=== PATIENT | female | born 2000 | race Caucasian/White ===

== ENCOUNTER 2024-01-07 09:56 | Outpatient (OUT) | payer OTHER, SELFPAY | END 2024-01-07 09:57 | disposition home or self-care (01) | LOC: PST 10:01 | PROVIDERS: PCP Family Medicine; Visit Provider Obstetrics & Gynecology | DX: Z01.818 Encounter for other preprocedural examination (principal); Z30.2 Encounter for sterilization ==

== ENCOUNTER 2024-01-17 08:09 | Day surgery (SDC) | payer OTHER, SELFPAY ==
[2024-01-07 10:41] VITALS: BP 129/82; PULSE 87; TEMP 36.5; O2SAT 98; BMI 36.6
[2024-01-17] VITALS (15 sets, daily range): BP systolic 137–162; BP diastolic 64–96; PULSE 79–94; TEMP 35.8–36.7; O2SAT 94–98; BMI 36.8
[2024-01-17 08:19] LABS: Hematocrit 39.9 % (36.0-48.0); Hemoglobin 13.7 g/dL (12.0-16.0); Immature Granulocytes Abs Auto 0.02 10^3/uL (0.00-0.03); Immature Granulocytes Pct Auto 0.2 % (0.0-0.5); Lymphocytes Absolute Auto 2.3 10^3/uL (1.2-3.8); Lymphocytes Percent Auto 28.5 % (20.5-60.0); Mean Corpuscular HGB Conc 34.3 g/dL (29.9-35.2); Mean Corpuscular Hemoglobin 30.9 pg (26.7-34.0); Mean Corpuscular Volume 90.1 fL (81.0-99.0); Mean Platelet Volume 10.8 fL (9.5-13.5); Monocytes Absolute Auto 0.5 10^3/uL (0.3-0.8); Monocytes Percent Auto 6.3 % (1.7-12.0); Neutrophils Absolute Auto 5.2 10^3/uL (1.4-6.5); Platelet Count 240 10^3/uL (150-450); Red Blood Count 4.43 10^6/uL (4.20-5.40); White Blood Count 8.1 10^3/uL (4.0-11.0)
--- OUTSIDE RECORDS SUMMARY | 2024-01-17 08:20 | XMS_ITS | CCD ---
Author Organization [facility] Care Team Providers Care Front Of House Manager Name Role Phone Unavailable Primary Care Provider Sudheer Teresa MD, Alvino Grover Primary Care Unavailable Malick WATERS, Alvino Grover Attending Unavailable HOUSE, JEANNETTE Menjivar Primary Care Unavailable Malick WATERS, Alvino Grover Attending Unavailable Dao, Gary Attending Unavailable HOUSE, JEANNETTE P Primary Care Unavailable HOUSE, JEANNETTE P Referring Unavailable Dao, Gary Attending Unavailable HOUSE, JEANNETTE P Primary Care Unavailable Dao, Gary Admitting Unavailable Dc, Gary Attending Unavailable HOUSE, JEANNETTE P Primary Care Unavailable HOUSE, JEANNETTE P Admitting Unavailable HOUSE, JEANNETTE P Attending Unavailable HOUSE, JEANNETTE P Primary Care Unavailable HOUSE, JEANNETTE P Admitting Unavailable HOUSE, JEANNETTE P Attending Unavailable HOUSE, JEANNETTE P Primary Care Unavailable Malick WATERS, Alvino Grover Attending Unavailable Malick WATERS, Alvino Grover Primary Care Unavailable HOUSE, JEANNETTE Otto Primary Care Unavailable DORIE GOMEZ Attending Unavailable ARACELY KILGORE Attending Unavailable HUI-NOSSEK, HOLLY M Attending Unavailab le HUI-NOSSEK, HOLLY M Attending Unavailab le [facility], HOLLY M Attending Unavailab le HUI-NOSSEK, HOLLY M Attending Unavailab le HUI-NOSSEK, HOLLY M Attending Unavailab le [facility]UI-NOSSEK, HOLLY M Attending Unavailab le [facility], HOLLY M Attending Unavailab le BRETTOANH ABRAMS Attending Unavailable [facility]-NOSSEK, HOLLY M Attending Unavailab le BRETTOANH Attending Unavailable H[facility]-NOSSEK, HOLLY M Attending Unavailab le Allergies Allergy Classification Reported Allergen(s) Allergy Type Date of Onset Reaction(s) Facility (4 sources) Amoxicillin; Translations: [AMOXICILLIN] Drug Allergy 9 [facility] (4 sources) ARIPiprazole; Translations: [ARIPIPRAZOLE] Drug Allergy 3 Other [facility] (3 sources) Sertraline Drug Allergy 3 Other [facility] (1 source) Pollen; Translations: [Pollen] Propensity to adverse reactions (disorder) Repository (1 source) Bee pollen; Translations: [BEE POLLEN] Propensity to adverse reactions to drug (disorder) 4 [facility] Repository Medications Current Medications Medication Drug Class(es) Dates Sig (Normalized) Sig (Original) LORazepam 0.5 mg oral tablet (3 sources) Benzodiazepine LORazepam (Ativa n) 0.5 MG tablet Take 0.5 mg by mouth as needed at bedtime for anxiety 0 Active lumateperone 42 mg oral capsule (5 sources) Start: 05-15-19 End: 07-06-19 take 1 capsule by mouth in the morning Lumateperone Tosylate (Caplyta) 42 MG capsule Indications: Bipolar I disorder, moderate, current or most recent episode depressed, with psychotic features, with mixed features (CMS/HCC) Take 42 mg by mouth in the morning. 30 capsule 1 06/06/2023 07/06/2023 Active 1 ml medroxyPROGESTERone acetate 150 mg/ml prefilled syringe (3 sources) Progestin Start: 05-09-19 medroxyPROGESTERone (Depo-Provera) 150 MG/ML suspension prefilled syringe injection syringe Indications: Unwanted fertility Inject 1 mL (150 mg) into the shoulder, thigh, or buttocks every 3 (three) months 1 mL 3 05/09/2023 Active sertraline 100 mg oral tablet (3 sources) Serotonin Reuptake Inhibitor Start: 04-17-20 End: 04-16-20 take 1 tablet by mouth in the morning sertraline (Zoloft) 100 MG tablet Indications: Anxiety Take 1 tablet (100 mg) by mouth in the morning. 30 tablet 2 04/17/2023 04/16/2024 Active 24 hr divalproex sodium 500 mg extended release oral tablet (2 sources) Mood Stabilizer, Anti-epileptic Agent Start: 06-06-19 End: 07-06-19 take 1 tablet by mouth every twenty-four hours in the morning divalproex (Depakote ER) 500 MG 24 hr tablet Indications: Bipolar I disorder, moderate, current or most recent episode depressed, with psychotic features, with mixed features (CMS/HCC) Take 1 tablet (500 mg) by mouth in the morning. Do not crush, chew, or split.. 30 tablet 2 06/06/2023 07/06/2023 Active Completed/Discontinued Medications Medication Drug Class(es) Dates Sig (Normalized) Sig (Original) lamoTRIgine 100 mg oral tablet (3 sources) Mood Stabilizer, Anti-epileptic Agent Start: 04-01-2023 End: 06-06-2023 take 1 tablet by mouth in the morning lamoTRIgine (LaMICtal) 100 MG tablet Indications: Bipolar disorder with moderate depression (CMS/HCC) Take 1 tablet (100 mg) by mouth in the morning. 30 tablet 1 04/01/2023 06/06/2023 Discontinued Problems Active Problems Problem Classification Problem Date Documented Date Episodic/Chronic Anxiety disorders (6 sources) Anxiety; Translations: [Anxiety disorder, unspecified] Onset: 02-18-2023 02-18-2023 Chronic Attention-deficit, conduct, and disruptive behavior disorders (3 sources) Attention deficit hyperactivity disorder; Translations: [Attention-deficit hyperactivity disorder, unspecified type] Onset: 02-18-2023 02-18-2023 Chronic Mood disorders (5 sources) Bipolar disorder; Translations: [Bipolar disorder, unspecified] Onset: 02-18-2023 02-18-2023 Chronic Other female genital disorders (1 source) Other specified noninflammatory disorders of vagina; Translations: [Other specified noninflammatory disorders of vagina] Onset: 11-09-2023 Episodic Unclassified (1 source) Painful Urination Onset: 11-09-2023 Unclassified (1 source) Vaginal Burning, Pain with Urination Onset: 11-09-2023 Past or Other Problems Problem Classification Problem Date Documented Da te Episodic/Chronic Mood disorders (3 sources) Mood disorders Onset: 04-17-2023 04-17-2023 Results Test Name Value Interpretation Reference Range Facility HCG ( test) Ql (U)o n 11-09-2023 Beta HCG ( test) Ql (U) Negative Normal NEG [facility] Comment on above: Performed By: #### 2 106-3 #### [facility] ([id number]) [address] [place] [address] [place] [address] URN MACROSCOPIC NURon 2023 BILIRUBIN EFRAIN Negative Normal NEG [facility] Comment on above: Performed By: #### N UM #### [facility] ([id number]) [address] [place] [address] [place] [address] BLOOD/HGB EFRAIN Small Abnormal NEG [facility] Comment on above: Performed By: #### N UM #### [facility] ([id number]) [address] [place] [address] [place] [address] GLUCOSE EFRAIN Negative Normal NEG [facility] Comment on above: Performed By: #### N UM #### [facility] ([id number]) [address] [place] [address] [place] [address] KETONES EFRAIN Negative Normal NEG [facility] Comment on above: Performed By: #### N UM #### [facility] ([id number]) [address] [place] [address] [place] [address] LEUKOCYTE ESTERASE EFRAIN Negative Normal NEG [facility] Comment on above: Performed By: #### N UM #### [facility] ([id number]) [address] [place] [address] [place] [address] NITRITE EFRAIN Negative Normal NEG [facility] Comment on above: Performed By: #### N UM #### [facility] ([id number]) [address] [place] [address] [place] [address] PH EFRAIN 6.0 Normal 5.0-8.5 [facility] Comment on above: Performed By: #### N UM #### [facility] ([id number]) [address] [place] [address] [place] [address] PROTEIN EFRAIN Negative Normal NEG [facility] Comment on above: Performed By: #### N UM #### [facility] ([id number]) [address] [place] [address] [place] [address] SPECIFIC GRAVITY EFRAIN 1.010 Normal 1.003-1.035 Pro [facility] Comment on above: Performed By: #### N UM #### [facility] ([id number]) [address] [facility], [place] [address] UROBILINOGEN EFRAIN 0.2 eu/dL Normal <1.1 [facility] Comment on above: Performed By: #### N UM #### [facility] ([id number]) [address] [place] [address] VAGINITIS PANEL PCRon 2023 VAGINITIS PANEL PCR BACT. VAGINOSIS DNA Not detected (qualifier value) Qualitative results are reported based on detection and quantitation of targeted organism markers which include: Lactobacillus spp. (L. crispatus and L. jensenii), Gardnerella vaginalis, Atopobium vaginae, Bacterial Vaginosis Associated Bacteria-2 (BVAB-2) and Megasphaera-1 JULIA SPECIES DNA Not detected (qualifier value) Julia species not detected include: C. albicans, C. tropicalis, C. parapsilosis or C. dubliniensis JULIA KRUSEI DNA Not detected (qualifier value) No Julia krusei detected JULIA GLABRATA DNA Not detected (qualifier value) No Julia glabrata detected TRICHOMONAS VAG DNA Not detected (qualifier value) No Trichomonas vaginalis detected NOTE BD MAX Vaginal Panel has not been evaluated for patients under 18 years old. Results for these patients should be reviewed and assessed in accordance with clinical presentation to determine patient diagnosis. Normal [facility] Comment on above: Performed By: #### V PPCR #### [facility] ([id number]) [address] [place] [address], [address] [place] [address] Provider Orderson 10-18-2023 Provider Orders [id number] [facility] Coding Summaryon 10-01-2023 Coding Summary HTMLBase 64 LfgsclhyYXz6rNu+PGhl YWQ+ZZ4OCRAuA96tzOPe kP1nI7XQEApDCeofGVWM FDcQJmLoqdKoMB6bzROn ZXJu IC8+ZP8aYGLhRjnukHPt t6C9fBB8I42erv8sDQeu bUI1YVWyJgFnltpnb1dz lTl3CWubMzaiKePp UTSqwV10WXF4xD51Wz08 rTDqqELua0qzpIr9RhRj PZKpYXC3jPdeRNvmh0Fh SSLjS52amBZrw0N4 IGNvbGxhcHNlOyBlbXB0 gU5gPEkgjogrc9yfuccg Eja4nx45nOBog7I1pWF6 R3LktgD4DBFxrTCd NsmnjZTNnG6efkmzc2pb jmwaNaAsQVBkTKd9UIb8 NPKqgBkrQfGgKN15SSW5 OSBgveXlU9LjLLLo iMfkAeJ7q8U2Kv8UY4SE RsiqY0DCJRHGWDzwlXL+ YR31nx59Z5YzHsvfWlr0 VQJlWKS9uRE6hM1c WNIsQPuid8Y5aFV0O3Wk duSfqf8ki6doDXSlWCam V13tdAMfg8W1CQTxzEQ9 BCEnwItlSvIkqM95 Oyc+GZDkuFcyb2DdGwdu s7jle6tjrCj9BjshZKCa skKbvLacWJM4h9TsKv5g IWFytPR7uAH6dK0d UfTaFpV1CSytE140FtHy wVItUduaN93fB8DtlJA+ GGLtChi8OSMkoWleQH8j S9BzWYLhthaaeGTd jCioLC9gDGXebxotGCYp cR3yHANnO6f0IlAdLcZ9 UMjyD3TbXVYutetvBz38 zX3fDwPsCqD4FCxs M1KluiD3UBDwoASlBGzj STJ6F23ip0P6QELqZIEc FAK4wLG9aA7izCohzcqu bGVmdDsgdmVydGlj CHtdFPzxY073GYYceXsv PkNvZGluZyBEYXRlOiAg MDYvMDQvMjAyNDwvdGQ+ WVRjFYO8gDlqLVXa vIEjXFneKx9hhQspfKck SX9aSLAgjcwvPOWysM8y WVRbdLZerXfpIQ6jWBRo noynt465TqHhBYC2 OQBewKTrT1IwlQ4fPdXl FOQiXQNmF7RirNFcKFpw C868SBmeEaZ7NSCsydUs T6EhLFEjdNkxCvO0 k4W9Ae9Zu8HofesaA6Mg eEXoEoIoKzobXKk3Y5Le PjwvdHI+VI70BODsVD10 HFh9XNN9lJaiGLej ZQScF0BhlZ8vFsKcJZIw ZGRkOyc+PHRhYmxlIHdp ZHRoPScxMDAlJyBzdHls YP2iAx4zUEOuYWCu qRqjrVOeWqQzc6dfHXCd WTajRM2hlVcsH6HdoEI0 CGDtj6a3Dq50A16nG0Kz dXA+UBQywXA1eBI3 hK1sKuJuDtS9TEjvF462 BoKcmRLxAejfe1vgp1wz zBl2KjC0BMEucnRsjMfs VCS0s5LzNo00X18n IHdpZHRoPSIxNSUiIHZh fUscps1bjD3rZx1+PGNv jGG5aNP1tR1pIbLkElX4 HYccP329HuOskWOm Fgxgg8avc3bmyFq3RqFl PCLxrgSwqArtINL8v8Ir Fy46H5HnuWres1XhFno2 gt30fDSjv6Y3eNB9 U7QcRJButexwvGLakIbk MT1hCGEzvkfwHZCtzE1o VQXsA9k8JhMtOcO3ASkr M0GhttU0CVZwlRCq BMKjkHHZgT6hdofww7re slnlKuIcPFFyMOp9BEd6 DQMchBcsPaLmOTX0BkZ1 UKY9mEKptE1omTwg ufylsM0rKqr+WUQ8zDOv mOVDET0kUvjecZM+PHRk EXR9jAdiAQhoRZHrgI0n LRThD0c6SvXzHkU9 CSpnR0HbkeX3XNRilOGz CXFtgCUXrW2rpejuj6cr hjdfWoFvPZUwECl3PDg8 LWFsaWduOiBsZWZ0 RdA8URR7fTHcqC9gtObe qmkhyS5vMuu+QmlydGgg QDO3LTb7X8MrPho7KAMz rYkiXV1eoFIkVTla Go7sjAwuwSkkDK8pFAUd zehdv060OfGcz0jsONSs lTZpDEuxQFK2M49xp0Y5 KLYeVKIgCHQ7wDQ2 sS3snTvfwntihQYifTfn fxPjdLisXYxsTBjzT169 OFXnnRjpYqZrFZe2R7Qq Mvq3HCVgyDjnUX8l dLGpBDutWn7npErmwCbq BU1tTJRimtiux584MpVq v9giSPQmtEBzDCzpJRD8 Q78vj1Z0UMJlIBUh SQT7yUW0xQ6gcUkhcduo bGVmdDsgdmVydGljYWwt PJweB497PVHsyJqyFfTs zWg8X9HmEiv5EIBi oGrsRM5epGHmTShmUs6s hDddvXocYJ9tXSJuumdj c650KtJqa4xbOOHeuXXq COlnFTP1J78eu9E2 OKKfQKObIHX7bMT3mH1f bGlnbjogbGVmdDsgdmVy qDxpGKtyKSthI303AHWn cDsnPlBhdGllbnQg FKlrBSy2K1PiZrtqjDT+ VJ34GXRuSJ53pSHgnODs q4pswRb9ZhAkXACiGIZ0 iKjpKRkxd8WzNQLy K43ccCXdm2P2IWKpmLnj yCVyHuGnsVC0rW0pSWwz qfyov4ntssapKsfmw1cf ih23uV17G59qPFqm ZHRoPSIzMCUiIHZhbGln ze2vaK8gJh0+PGNvbCB3 xPQ9vZ8gSZGxGwT6IVqg W295PlZuqTQcRvmo r0duj5redUb0PkW2PNDa nfTkaVpoXTC7l2AiFf03 C85jNDyjRDNvTRDnVMPn CIVnbBnwqg1aeU0s Ii8+LSYzyUP8lKA6bP4n MaBtFdX1ODehY307GrPg pXIdKgfjY85rL5ZimLX+ BHGxAfz1EJMgcFlt KN0srAPdMSwjHi2aSKA1 CaYnIwAzXCxgO4FeUOVg enelhccreIA3OQEiVUJi sV21Ma1jhRnrZDSy wPBWcG2bkskom1cwylby RcYsWSIvVKo4ZHx8KBPj nGxhJlJdIDK7VmN2KGQ0 hSChiS2dpGktnnya cJ4mA4UsRTLtnztiBa07 lJ6bYdNuKmG5FKroYpu+ R7QIDBpXTM2GUHAhHW7Y VAQJOMTPURM8E4Li Eng7GGWwnOajZI6tgNDi NTogMi3ulDcsoBeuNF4m RYPckkqaCJNydL1pPWQa vLAytKqrVK0hDZAc churt567CtEnVUW9QNRf bINfI8PxbD6iDeBiTJQp ZCBfW8ZheIGlXCccG777 YRegAfL1KKXyxiDk C1UdTZHgzWbjAiO4c0M1 Az3gPe0bWC2yXXLwWP52 RZ51xXWhn0J8cIY2I0Ay ZGRpbmctcmlnaHQ6 XBCuBRHroF86uEFmFXar Ag7kc3Q3u385TDMeFYCe zA81Ym5ueEraHWIfiQST lD5tdjwbb5fstmqb ScPeBPRkVIp6ETh8MCQe yGjsZeJxION4CmK1RUB7 nEVtiM0ziXvbieargJ5h Oyc+MjMgWWVhcnM8 B8WlMzi0GPItaOdoBD7w zSRyQCxtJh3fhZqquXim YF2oNDZyfyqdEPRujO4h SFHqrCOryGihSB4x UFPbiqyuf828XpAgZLI5 AMRqxOYaN1YkkC4eRsWf OSQnJWGkZ1RscQUjEShm D959MBfsYfT5PULb chMiA3SqJNPqaKcyRbT8 l4V4Zf5SMY5KQDB9E1Rt Czi7YMTpgXlbGE6coZEg RZlfFs0aoTurgMet IY1rHKXcesjqTXOkfD2z UBAbvPBgqNplST7cJFEj npgoj303PwFvNWX8LZSi hQDmQ1SsnD9wOjAo QHDyXPZzY7LnaWTwLKjs V774NScpIhV4DPGdygBo G8FgMJSgoTjsToC2b3L1 In8YMGzdZ4MaT7Uw eTwvdGQ+AK89tx05X1Hx SwynBvz0CPXyKTY5iAN3 cL2eXQClMFzts0S2yVH2 T3JlbwMasq1at7ds OHNzSNskZ88wfXTsn9O1 ONIdrEO7FJAowIypCcLy aR80Sbs+XSGdtMaet5Cr Wrvzc4ywl8bixGo1 IjMwJSIgdmFsaWduPSJ0 s9ZiGu81R56yBYmfFPUc KPFyJFMkPAKkdRvidb5j mX9aMf7+PGNvbCB3 uSG7dV9wRzQcVhW0PFoy X001HjXhvOImXivdl1xp c3emkEd1ZdPkBGYesmKd vZwzQKQ4v9QpMi84 X5VgxTdhv4EbKbm4tk24 tHTgi6Y1sDR9I4OsOZCa fqpgrEMonTkiFU3aZEMr qunpWIWjyP1qLEOl V6g0AhQlNbO9FZuiH5Lv bcT1KLNhsMKaEWJppLZF rR1ivhnau1hkrblbYnKu FUZwFXc9NGk7QIHo mZotMwUxFXN0QaZ8SKC6 rODgjS9ceSijkrzirO4x Oyc+LDt2r8vuyMYiZQ2l eEV4WL10JZ36tXTi l6U4tEH9R5BqRXQvwhbu noatgZX8JDBtWHJvbK30 Kl6veZsqXk1eNKRsRMZ8 VFMtcFGfT4GtzB0b FiFdZPYaANZyM9PrfRPs AEylN354EQmxBrI5OBHi moKuS8LkBVTutScjJaI9 w8N3Si9GQC63GR40 HS70xARos7X6nWD9V4Wz CBMgbhartqhkrDG1UFVx BSUypH93Sj2guMozKm0x XDTjWCL5RNZmfFZv C4HfwD4bMpYzYUPdMJLo B9PyrFZxTBrhJ972DDzg ZoL3KSVzjcXrD9PwSPQt sLgrOdH9l0K1Ua9N Ug26BD10CN69hOSdf4X6 jOA0J7LkHHNadketblxj lTE1ZZSiNLGemD82St0k kWoeFb0iSIIzLON4 DTEprTPrT9TqpA9gTvJh PCTyQLFfM9IyxYLuMYwu C138HRhnRoV6DXChvkFo H3HtWDRzjPzmAlL6 s2M7Pe6IFRrebic8Y5Ol PjwvdHI+NW80PVRvSX76 sTNnrYDzq1sysSe1HfWm WBIiQJO6pHkoOJti b3J (more content not included)... [facility] Consent Formson 09-20-2023 Consent Forms [id number] [facility] Provider Orderson 09-20-2023 Provider Orders [id number] #[id number] [facility] Anesthesia Noteon 09-19-2023 Anesthesia Note Patient: WALTER RUSSO Age: 23 years Sex: FEMALE : 2000 Associated Diagnoses: None Author: Deacon Carvajal MD Postoperative Information Post Operative Note Health Status Allergies: Allergic Reactions (All) Severity Not Documented Pollen- No reactions were documented. Canceled/Inactive Reactions (All) Severity Not Documented Amoxicillin- No reactions were documented. 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 Anxiety / SNOMED CT 20362508 / Confirmed Attention deficit disorder without hyperactivity / SNOMED CT 16413599 / Confirmed Callus / SNOMED CT 953963680 / Confirmed Constipation in female / SNOMED CT 07319989 / Confirmed Depression / SNOMED CT 73228361 / Confirmed OCD (obsessive compulsive disorder) / SNOMED CT 123523134 / Confirmed Dyspareunia, female / SNOMED CT 867881980 / Confirmed Rectal bleeding / SNOMED CT 136468168 / Confirmed Pes cavus / SNOMED CT 11407666 / Confirmed Viral gastroenteritis / SNOMED CT 697723863 / Confirmed Physical Examination VS/Measurements Vital Signs (last 24 hrs) Last Charted Heart Rate Peripheral 72 bpm (SEPTEMBER 18:) Resp Rate 16 br/min (SEPTEMBER 18:) SBP 125 mmHg (SEPTEMBER 18:) DBP 75 mmHg (SEPTEMBER 18:) Weight 98.366 kg (SEPTEMBER 18 08:30) Assessment Anesthetic outcome No anesthetic complications noted. Plan Transfer/ Discharge: To home, Patient can be discharged from PACU when criteria met. Condition good. [Electronically Signed on: 09/19/2023 10:46 EDT] Deacon Carvajal MD [Verified on: 09/19/2023 10:46 EDT] Deacon Carvajal MD [facility] Anesthesia Note Patient: WALTER RUSSO Age: 23 years Sex: FEMALE : 2000 Associated Diagnoses: None Author: Deacon Carvajal MD Preoperative Information Anesthesia history: Patient history: No difficult intubation, No malignant hyperthermia. Family history: No malignant hyperthermia. Review of Systems Constitutional: Negative. Respiratory: Negative, No shortness of breath. Cardiovascular: Negative, No chest pain. Gastrointestinal: No heartburn. Health Status Allergies: Allergic Reactions (All) Severity Not Documented Pollen- No reactions were documented. Canceled/Inactive Reactions (All) Severity Not Documented Amoxicillin- No reactions were documented. Current medications: Home Medications (5) Active Caplyta 42 mg oral capsule 42 mg = 1 cap(s), Oral, Daily Depakote 500 mg oral delayed release tablet 500 mg = 1 tab(s), Oral, Daily Depo-Provera 150 mg, IM, q3mo LORazepam 0.5 mg oral tablet 0.5 mg = 1 tab(s), PRN, PO, TID sertraline 150 mg oral capsule 1 tb(s), Oral, Daily Problem list (past medical history): All Problems Abdominal pain / SNOMED CT 72032747 / Confirmed Alcohol-induced amnesia / SNOMED CT 918647295 / Confirmed Anxiety / SNOMED CT 40195517 / Confirmed Attention deficit disorder without hyperactivity / SNOMED CT 94168108 / Confirmed Callus / SNOMED CT 546551529 / Confirmed Constipation in female / SNOMED CT 55063415 / Confirmed Depression / SNOMED CT 71060145 / Confirmed OCD (obsessive compulsive disorder) / SNOMED CT 109356892 / Confirmed Dyspareunia, female / SNOMED CT 269070531 / Confirmed Rectal bleeding / SNOMED CT 802734955 / Confirmed Pes cavus / SNOMED CT 98166314 / Confirmed Viral gastroenteritis / SNOMED CT 483173965 / Confirmed Resolved: Deviated nasal septum / SNOMED CT 193502254 Resolved: Disease caused by 2019 novel coronavirus / SNOMED CT 0859622451 Resolved: Encounter for control / SNOMED CT 459340261 Resolved: Hidradenitis / SNOMED CT 694385961 Resolved: History of convulsions / SNOMED CT 1767851812 Resolved: Irregular menses / SNOMED CT 734140118 Resolved: Nasal congestion / SNOMED CT 017235979 Resolved: Numbness in feet / SNOMED CT 460585861 Resolved: Pneumonia / SNOMED CT [id number]-T [id number] Resolved: Convulsion disorder / SNOMED CT 569874234 Canceled: History of epilepsy / SNOMED CT 9929501413 Canceled: Bowlegged / SNOMED CT 8488898993 Histories Family History: Diabetes mellitus type II Grandfather (Maternal) Uncle (Maternal) Grandmother (Maternal) Kidney disease Grandfather (Maternal) Coronary heart disease Grandparent Comments: 06/18/2016 15:45 CAM - ValenzuelaHamida [employer] maternal granfather Glaucoma.... Grandparent Pacemaker Grandfather (Maternal) Procedure history: EEG ([id number]) on 07/06/2017 at 17 Years. eeg on 08/05/2007 at 7 Years. Deviated septum ([id number]). MRI of brain and brain stem ([id number]). Social History Electronic Cigarette/Vaping Assessment Electronic Cigarette Use: Never. Electronic Cigarette Use: Never. Alcohol Assessment: Denies Alcohol Use Use: Past. 1-2 times per month Tobacco Assessment: Denies Tobacco Use Never tobacco user Tobacco Use:. Never tobacco user Tobacco Use:. Substance Abuse Assessment: Denies Substance Abuse Comment: denies Employment/School Assessment Employed Home/Environment Assessment Lives with Significant other. Nutrition/Health Assessment Caffeine intake amount: 1 can pop/day. 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 Physical Examination VS/Measurements Measurements from flowsheet : Measurements 09/19/2023 8:30 EDT Height 167.64 cm Weight 98.366 kg Weight Dosing 98.366 kg Body Mass Index 35 kg/m2 , Vital Signs (last 24 hrs) Last Charted Heart Rate Peripheral 80 bpm (SEPTEMBER 18 08:30) Resp Rate 16 br/min (SEPTEMBER 18 08:30) SBP 112 mmHg (SEPTEMBER 18 08:35) DBP 74 mmHg (SEPTEMBER 18 08:35) Weight 98.366 kg (SEPTEMBER 18 08:30) Review / Manageme (more content not included)... Normal Inpatient Patient Summaryon 09-19-2023 Inpatient Patient Summary [address] [address] Patient Discharge Instructions Name: WALTER RUSSO : 2000 Patient Address: [address] [id number] Primary Care Provider: Name: JEANNETTE STOREY DO After you are discharged if you find you have any questions, please, call [phone] ext [phone] to speak to a nurse. Discharge Diagnosis: 1:Abdominal pain; 2:Rectal bleeding Prescription Information: If you have been given a prescription for narcotics, seek immediate medical attention if you have any difficulty breathing or any sudden status changes such as confusion and sleepiness. If you or anyone you know is experiencing suicidal thoughts, mental health, alcohol and/or drug addiction problems; contact the [facility] 19/11 Crisis Hotline -Text 4HEUO to 403017. If you received any narcotics, sedation, or any other medication that causes drowsiness for the next 24 hours, unless otherwise directed: ? Do not drive a car. ? Do not operate machinery such as power tools, lawn mowers, drills, sewing machines, or stoves ? Avoid alcoholic beverages and drugs for allergies, nerves, or sleep ? Do not make important personal or business decisions or sign any legal documents would like to thank you for allowing us to assist you with your healthcare needs. The following includes patient education materials and information regarding your injury/illness. WALTER RUSSO has been given the following list of follow-up instructions, prescriptions, and patient education materials: Follow-up Instructions With: Address: When: JEANNETTE STOREY With: Address: When: Gary Dc [address] [place] [address], [place] [address] Business (1) , only if needed Medications During the course of your visit, your medication list was updated with the most current information. The details of those changes are reflected below: Medications to Continue That Have Not Changed Other Medications divalproex sodium (Depakote 500 mg oral delayed release tablet) 1 tab(s) Oral (given by mouth) every day. LORazepam (LORazepam 0.5 mg oral tablet) 1 tab(s) Oral (given by mouth) 3 times per day as needed as needed for anxiety for 30 Days. Refills: 2. lumateperone (Caplyta 42 mg oral capsule) 1 cap(s) Oral (given by mouth) every day. medroxyPROGESTERone (Depo-Provera) 150 Milligram Intramuscular every 3 months. sertraline (sertraline 150 mg oral capsule) 1 tb(s) Oral (given by mouth) every day. It is important to always keep an active list of medications available so that you can share with other providers and manage your medications appropriately. As an additional courtesy, we are also providing you with your final active medications list that you can keep with you. divalproex sodium (Depakote 500 mg oral delayed release tablet) 1 tab(s) Oral (given by mouth) every day. LORazepam (LORazepam 0.5 mg oral tablet) 1 tab(s) Oral (given by mouth) 3 times per day as needed as needed for anxiety for 30 Days. Refills: 2., per [place]AR[place], last filled 04/23/2022 #90 appt 08/22/21 lumateperone (Caplyta 42 mg oral capsule) 1 cap(s) Oral (given by mouth) every day. medroxyPROGESTERone (Depo-Provera) 150 Milligram Intramuscular every 3 months. sertraline (sertraline 150 mg oral capsule) 1 tb(s) Oral (given by mouth) every day. Take only the medications listed above. Contact your doctor prior to taking any medications not on this list. Diet & Activity Patient Activity Level: Patient Diet: Regular Patient Activity Restrictions: Comment: Patient education materials, if any, will display below Colonoscopy, Adult, Care After The following information offers guidance on how to care for yourself after your procedure. Your health care provider may also give you more specific instructions. If you have problems or questions, contact your health care provider. Findings: The scope was advanced the entire length of the colon and into the last portion of the small intestine. The prep was good. The exam was unremarkable. No polyps or masses were seen. There was no inflammation. I did not see any significant hemorrhoids today. What can I expect after the procedure? After the procedure, it is common to have: ? A small amount of blood in your stool for 24 hours after the procedure. ? Some gas. ? Mild cramping or bloating of your abdomen. Follow these instructions at home: Eating and drinking ? Drink enough fluid to keep your urine pale yellow. ? Follow instructions from your health care provider about eating or drinking restrictions. ? Resume your normal diet as told by your health care provider. Avoid heavy or fried foods that are hard to digest. Activity ? Rest as told by your health care provider. ? Avoid sitting for a long mayur (more content not included)... Normal MAGR Intraoperative Recordon 09-19-2023 MAGR Intraoperative Record MAGR Intra-Op Record Summary Primary Physician: Gary Dc MD Finalized Date/Time: 09/19/23 10:09:09 Pt. Name: WALTER RUSSOE /Sex: 2000 FEMALE Med Rec #: [id number] Physician: Gary Dc MD Financial #: [id number] Pt. Type: D Room/Bed: / Admit/Disch: 09/19/23 08:23:11 - Institution: Case Times MAGR Entry 1 Patient In Room Time 09/19/23 09:25:00 Out Room Time 09/19/23 09:41:00 Anesthesia Start Time 09/19/23 09:23:00 Stop Time 09/19/23 09:40:00 Surgery Start Time 09/19/23 09:28:00 Stop Time 09/19/23 09:39:00 Last Modified By: Jessy Rivera RN 09/19/23 09:44:40 General Comments: CECUM- 0931 Case Attendance MAGR Entry 1 Entry 2 Entry 3 Case Attendee Gary Dc MD, John M MD Kokinda, Diane RN Role Performed Surgeon - Primary Anesthesiologist of Lead Mechanic Record Time In 09/19/23 09:26:00 09/19/23 09:25:00 09/19/23 09:25:00 Time Out 09/19/23 09:39:00 09/19/23 09:41:00 09/19/23 09:41:00 Procedure Colonoscopy Colonoscopy Colonoscopy Last Modified By: Jessy Rivera RN, Diane RN Kokinda, Diane RN 09/19/23 09:44:31 09/19/23 09:44:31 09/19/23 09:44:31 Entry 4 Entry 5 Case Attendee Darya Pulido Kelly WEDDING PHOTOGRAPHER WEDDING PHOTOGRAPHER Role Performed Data Support Specialist Scrub Personnel Time In 09/19/23 09:25:00 09/19/23 09:25:00 Time Out 09/19/23 09:41:00 09/19/23 09:41:00 Procedure Colonoscopy Colonoscopy Last Modified By: Jessy Rivera RN, Diane RN 09/19/23 09:44:31 09/19/23 09:44:31 Surgical Procedures MAGR Pre-Care Text: A.20 Verifies operative procedure, surgical site, and laterality Im.150 Develops individualized plan of care Entry 1 Procedure Colonoscopy Primary Procedure Yes Primary Surgeon Gary Dc MD Surgeon Comment Colonoscopy Start 09/19/23 09:28:00 Stop 09/19/23 09:39:00 Anesthesia Type MAC Surgical Service General Wound Class Clean-Contaminated Technique Details Closure Technique N/A Entire procedure No was performed via laparoscope or robotic assistance Last Modified By: Jessy Rivera RN 09/19/23 09:44:37 Post-Care Text: O.730 The patient's care is consistent with the individualized perioperative plan of care General Case Data MAGR Pre-Care Text: A.350.1 Classifies surgical wound Entry 1 Case Information OR MAGR OR 02 Case Level Level 3 Wound Class Clean-Contaminated Specialty General ASA Class 2 Diagnosis Preop Diagnosis Rectal Bleeding and Postop Same As Preop No Abdominal Pain Postop Diagnosis Rectal Bleeding and Abdominal Pain-NORMAL COLON EXAM Blunt or No Is the procedure No penetrating injury considered occured prior to Emergent/Urgent? the start of the procedure: Last Modified By: Jessy Rivera RN 09/19/23 09:37:17 Post-Care Text: O.760 Patient receives consistent and comparable care regardless of the setting Time Out MAGR Entry 1 Procedure(s) Colonoscopy Time Out Checklist Verifications Team Introductions Yes Confirmed Identity, Yes Completed Procedure, Incision Site, and Consent(s) Presence of Yes Site Verification, Yes Necessary Site Marking, Site Procedural Marking Equipment, Devices, Alternative, and/or and Implants Site Marking Verified Exception in Accordance with Facility Policy Anesthesia Review Antibiotic Received n/a All Anesthesia Yes Within an Concerns Addressed Appropriate Time Interval Prior to Surgical Incision Surgeon Review Anticipated Blood Yes Expected Case Yes Loss Risk Addressed Duration Addressed Critical and Yes Non-Routine Steps to be Performed Addressed Nurse Review Equipment No Fire Risk Yes Checks/Concerns Assessment Addressed Completed and Interventions Performed Diagnostic and Yes Sterilization No Radiological Test Concerns Addressed Results Displayed are Appropriate and Labeled Other Concerns No Addressed Time Out Gary Dc MD, Time Out Time 09/19/23 09:27:00 Participants Deacon Carvajal MD, Jessy Rivera RN, Darya Pulido WEDDING PHOTOGRAPHER, Danae Coleman WEDDING PHOTOGRAPHER Last Modified By: Jessy Rivera RN 09/19/23 09:27:25 Patient Positioning MAGR Pre-Care Text: A.280 Identifies baseline musculoskeletal status Im.40 Positions the patient Im.80 Applies safety devices Entry 1 Procedure Colonoscopy Body Position Lateral Left Arm Position Resting at Side Right Arm Position Resting at Side Left Leg Position Extended Right Leg Position Extended Feet Uncrossed? Yes Press Points Checked Yes Positioning Device Pillow Outcome Met (O.80) Yes Last Modified By: Jessy Rivera RN 09/19/23 08:53:07 Post-Care Text: E.290 Evaluates musculoskeletal status O.80 Patient is free from signs and symptoms of injury related to positioning Departure from OR MAGR Entry 1 Present on Depart Oxygen Via Stretcher Post-op Destination PACU II Skin DFO Condition Dry Description Condition Warm Description Report Given To Robert (more content not included)... [facility] Postoperative Record MAGR Phase II Record Summary Primary Physician: Gary Dc MD Finalized Date/Time: 09/19/23 10:38:04 Pt. Name: WALTER RUSSO /Sex: 2000 FEMALE Med Rec #: [id number] Physician: Gary Dc MD Financial #: [id number] Pt. Type: D Room/Bed: / Admit/Disch: 09/19/23 08:23:11 - Institution: Phase II Case Times MAGR Pre-Care Text: Patient is free from s/s of injury. Patient remains free from compromised physical state related to surgery or anesthesia. Patient comfort maintained. Patient/family verbalize understanding of discharge instructions. Entry 1 In PACU II 09/19/23 09:41:00 Discharge from PACU 09/19/23 10:30:00 II Last Modified By: Lyssa Parker RN 09/19/23 10:37:59 Post-Care Text: The patient remains free from s/s of injury. Patient's vital signs stable, circulation maintained, return to preop mental and physical status, opsite/dressing intact, minimal or absent nausea and vomiting, tolerates po intake. Patient verbalizes adequate pain control. Patient/family express understanding of discharge instructions. Finalized By: Lyssa Parker RN Document Signatures Signed By: Lyssa Parker RN 09/19/23 10:38 [facility] Preoperative Record MAGR Pre-Op Record Summary Primary Physician: Gary Dc MD Finalized Date/Time: 09/19/23 09:54:07 Pt. Name: WALTER RUSSOE /Sex: 2000 FEMALE Med Rec #: [id number] Physician: Gary Dc MD Financial #: [id number] Pt. Type: D Room/Bed: / Admit/Disch: 09/19/23 08:23:11 - Institution: Pre-Op Case Times MAGR Pre-Care Text: Patient will be optimally prepared for surgery. Patient is free from s/s of injury. Provide information to patient/family related to plan of care. Verify patient allergies. Confirm identity and verify consent before the operative or invasive procedure. Entry 1 Patient Arrival Time 09/19/23 08:27:00 Preop Departure 09/19/23 09:23:00 Last Modified By: Lyssa Parker RN 09/19/23 09:54:01 Post-Care Text: Patient is prepared mentally and physically and is ready for surgery. The patient remains free from s/s of injury. Patient/family express understanding of plan of care and participate in decisions affecting his or her perioperrative plan of care. Allergies documented appropriately. Patient identifiers and consent correct. General Comments: Pt to PSW. Pt denies any recent cold/flu symtpoms, SOB, sleep apnea, diabetes, CP, or pacemaker/defibrilla tor. Pt states passing watery yellow fluid after bowel prep . Pt informed of restrictions for 24 hours due to anesthesia- pt with understanding. Finalized By: Lyssa Parker RN Document Signatures Signed By: Lyssa Parker RN 09/19/23 09:54 Normal Patient Handouton 09-19-2023 Patient Handout Radiology Colonoscopy, Adult, Care After The following information offers guidance on how to care for yourself after your procedure. Your health care provider may also give you more specific instructions. If you have problems or questions, contact your health care provider. Findings: The scope was advanced the entire length of the colon and into the last portion of the small intestine. The prep was good. The exam was unremarkable. No polyps or masses were seen. There was no inflammation. I did not see any significant hemorrhoids today. What can I expect after the procedure? After the procedure, it is common to have: ? A small amount of blood in your stool for 24 hours after the procedure. ? Some gas. ? Mild cramping or bloating of your abdomen. Follow these instructions at home: Eating and drinking ? Drink enough fluid to keep your urine pale yellow. ? Follow instructions from your health care provider about eating or drinking restrictions. ? Resume your normal diet as told by your health care provider. Avoid heavy or fried foods that are hard to digest. Activity ? Rest as told by your health care provider. ? Avoid sitting for a long time without moving. Get up to take short walks every 1?2 hours. This is important to improve blood flow and breathing. Ask for help if you feel weak or unsteady. ? Return to your normal activities as told by your health care provider. Ask your health care provider what activities are safe for you. Managing cramping and bloating ? Try walking around when you have cramps or feel bloated. ? If directed, apply heat to your abdomen as told by your health care provider. Use the heat source that your health care provider recommends, such as a moist heat pack or a heating pad. ? Place a towel between your skin and the heat source. ? Leave the heat on for 20?30 minutes. ? Remove the heat if your skin turns bright red. This is especially important if you are unable to feel pain, heat, or cold. You have a greater risk of getting burned. General instructions ? If you were given a sedative during the procedure, it can affect you for several hours. Do not drive or operate machinery until your health care provider says that it is safe. ? For the first 24 hours after the procedure: ? Do not sign important documents. ? Do not drink alcohol. ? Do your regular daily activities at a slower pace than normal. ? Eat soft foods that are easy to digest. ? Take xxjr-rpt-yycnuia and prescription medicines only as told by your health care provider. ? Keep all follow-up visits. This is important. Contact a health care provider if: ? You have blood in your stool 2?3 days after the procedure. Get help right away if: ? You have more than a small spotting of blood in your stool. ? You have large blood clots in your stool. ? You have swelling of your abdomen. ? You have nausea or vomiting. ? You have a fever. ? You have increasing pain in your abdomen that is not relieved with medicine. These symptoms may be an emergency. Get help right away. Call 911. ? Do not wait to see if the symptoms will go away. ? Do not drive yourself to the hospital. Summary ? After the procedure, it is common to have a small amount of blood in your stool. You may also have mild cramping and bloating of your abdomen. ? If you were given a sedative during the procedure, it can affect you for several hours. Do not drive or operate machinery until your health care provider says that it is safe. ? Get help right away if you have a lot of blood in your stool, nausea or vomiting, a fever, or increased pain in your abdomen. This information is not intended to replace advice given to you by your health care provider. Make sure you discuss any questions you have with your health care provider. Document Revised: 12/06/2021 Document Reviewed: 12/06/2021 [employer] Patient Education ? 2022 [employer]. [facility] Test Urine 1on U Preg Negative [facility] Comment on above: Performed By: #### 3 [id number] #### [facility] (DEFAULT) [address] [place] [id number] U Preg Internal Control Pass [facility] Comment on above: Performed By: #### 3 [id number] #### [facility] (DEFAULT) [address] [place] [id number] Coding Summaryon 08-12-2023 Coding Summary HTMLBase 64 YyfkncxrCZi7qYk+PGhl YWQ+BY2IYUTlO00qaCBo hF8qW5MBVNaMTblsNFZL KYjXDqTyriZpPB1orEFl ZXJu IC8+IK6lODIsAbkdbAXi v4I1lTG0H24udp8ySFqo sMR3DDThHuPsxlzhu0zt aKq7QQilHejpCwAs CZKctG89PFI2gP36Gy90 eEOofQUay7rdxVq5XfQr QRMpABK7tRyoOOqrw6Wd PGEqM28phRVqa0C0 IGNvbGxhcHNlOyBlbXB0 iW3rORsbtsogc4aankmz Ccp8lc84aNDuz1T8vLC0 R6KdnhJ9KLFveIFc TvsmxSGMoT2uqtgxv8st kvyoYdBiIBLxRGf8ZDh7 XAZacKhoPoLgNZ09GZG4 BOLwzoIaH9KsETUb bOtkVpJ4j2T0Ye7XB0MU IegcQ0WQEKIZWQjcgPF+ CO00iz93R1QdXvepJti8 WVTeFNQ9hNV4qI5i HPPvHVbsm4G0vCD5O2Ui npYigl1xt9yjDNKjLOxa U61iyMLri6N3GOQfsYT0 SVNpxLqbXvDsfK74 Oyc+TYVgoNtli6OsZyeb m1opt6aneBh2BhliPPKi fuYbiVjbFEJ2z1ElAc6b PQWslGO2pQY5qJ9l QvNdLzJ9GCyoY916IxMm bIFnTxdcC89qB7RamOC+ SGAsUkn7JXSmkVuqPV6x J2KfDRGssjvswXIa hLboOG5hHNKwohhmKGNq aL4qPMNxQ3z7PsLqCsW2 JHdbK3LkOSHbckhxMl97 oS4mYlMaJoI4PRih Z4OxddY6BQIakQRwCJfo PXX1C00xz9W1MLIsJCLd MUW7sNC7aF8zdMztqknx bGVmdDsgdmVydGlj VHnjOEkoP255HBXigEsf PkNvZGluZyBEYXRlOiAg MDQvMTUvMjAyNDwvdGQ+ TLEzMRX4vUjwOHSl dMJnKVpyVr1qyRfppFfv XS4fTZIjwjtpGTJxlM0l PZRwxFLdzXitVK4dQBNr mxids289VfHwBEJ0 JYTuzSAbX8KgyW1wMcLi ZCStIHDhK6UoxWAgSOkl C369GOlyXyY3DHVetxNd Z2MnKPOdnPmnBwO4 i8T6Jb1Lt2QpiiukK3Ac eLXhAmGqXzvyKJw0N3Hl PjwvdHI+ED46LJVfWP16 BDw6TQR7xDyvQRnz BETbM0RseL3kUsMbBNRe ZGRkOyc+PHRhYmxlIHdp ZHRoPScxMDAlJyBzdHls DA9uCo2nFCDmEBQz jNsgcUBzIhYsg1deKNSv ZHmdXK7vmDpeG7JstAK5 EAEey7l6Qi81Y09dO8Cc dXA+WCQwbDF3kWG9 sW6wJiYoEnT2SWvbI055 LnPxjJPxCmcdn8bwd0fo qRd3RtX1QKYnouVgwKtd WUQ6g4XnKz60J69o IHdpZHRoPSIxNSUiIHZh uKolgh5sbG5rCf6+PGNv zJA6dVB4tN8xNvLoAaY9 WGnvP914LtKgyJUy Joglr1gke7cleOz5SdBj FXTbqxRsiJdvXOZ9a4Jp Nw05C6DcoFujh8QvZon1 ji92fSUpi2U0xSD4 H4FmMHVwpdcdfXBkiBky ED1aXQLghgtoMYPbuG2t UCWxI2l7DoMtYpC6OWsa Y3ZhocW0KYXyqBUy AVWnaBGVlI7uotpke4ss xdqwYyUgHUOkNMf8WZb4 ZTKqnFoyRoUpXNL7MuZ7 GAS2iZSjvW6wyJso yrdakL8kNxf+XFC2pNUd cWLWGO7uOakpxUV+PHRk NEO4lRxaVDumLLBowA8i OZGlF8m5AoCyIrB5 YHlaB9LbizO9JJSysHHn UWSomRSLyS8bnvsnj5hq qcnrToVgOFFaHRo0HMl7 LWFsaWduOiBsZWZ0 QuZ5HQV0hYPjxV5rgSxn zggwmH9pDbv+QmlydGgg UHJ5HNx1P2ByUhd5AIZx sBcyFB3hkVQkWHdb Oo7ekUvhdZasTK0qWUTi smmvo368DzYaj6fkMPLn hEQwSOkxMCM9M86ly0F6 AQUyUNVeMGZ4nGO8 gU7brEmqipsopKEtePrr wgWpeGgfEPlhWFrnW752 QPJyfYtiHmDaQJs1N3Xn Rsx3ZRDchEnnWV8b pWUmFBzbRw5gcTuxcZjs DE0mASBubvgha667XrOf d0nkPSYrbIEaLYkeXOS8 I57wr0T7VPSsFOYx NQY9qFP3gT1qdJltncni bGVmdDsgdmVydGljYWwt PJcnD053NNEunFpoReMc qGt5N6NgBtd2IKQi bIbeNH7rsSQgTZujOi6w qSpsvMmsOZ2iQKMzezbq h318JuCfg9zgDUTreSOk NRkfBEH6D14hp7J8 KTPfTYRvBPD8tAC6eZ4u bGlnbjogbGVmdDsgdmVy bQnsEBwzSEsfH484BCDx cDsnPlBhdGllbnQg ZBvgKZs1I4WgLovzrIE+ TQ88ANTpVZ67nWKnqAGm f0nfgWr4WjXyFUJoJRZ7 cOpeAToqx8LxKQXg A08meCAhx5V8QFCogJzl xQPzWgWgmTL3wK3sXBnz nfegz0kcucujImzfk0bu ru08yJ94R32sJRdg ZHRoPSIzMCUiIHZhbGln fa9kkS7oRq4+PGNvbCB3 tLM0fP9iCSNbPhI7ZUqa R994YoYcyRSeJlly n6sao5ovrAf5OzM6XREf giPqzHzyJAL0n2FbZb64 E24yAOauGSWtTHFjQWDd ETCrqBbwzw6btW0s Ii8+OXWbtSH5aJV2aJ2c OnHtUrQ8REtsY421BtGj hDEkEpcoA64cU5PiaXR+ RFFeSld0RBWwmAzw WI2buMTxSBywFn5sPUL2 KvDlOgMuALzsZ9YoRWZo diqsafcjzXD0ITSjIZEi eY03Wa8ocXwiEVNz bFPWsO2sqoeae8vxvjay YwJsFNAfIOe0PHd6NEDy tVzrFaKtEGD0GoO3YAQ2 oMNrqT6kkKokyykm eF3sW7JpJJIpcktfOi08 cT1uHhQnQpX0JPpeMrv+ D9QJRZvQZC7JNKRyHH6B TZXNZKGSDYF3F0Kx Fne8GWFllVorNO8zlAYf HRsrUv9qyWsvhNpdMR1r SUHentgjBVPnaP6bFECk fNIokNcbJN9mZAKg jmvdn595KrJqXOP8RJMu mREzH3FwyD7lVrQvILEu AWZmZ1CxfKJkHAymX026 XZwgDdP4ARDsnxOk R3IlLSCtlKraYqR3w1A4 Wx1xWv0pYO1iEPInPL51 GO76oDLxj0M1dGH8X7Tf ZGRpbmctcmlnaHQ6 NWXuDYFcpV14fFKhHTpq Wh7pl5B0k424UVLvHBVq uH20Ny0dlBdfOATijRTA kS4etythn8kvisjb PdLwPXJuKWc7TSl5LPBj wIipCtVtQTU6CeP2FJP1 vFUubR8hcTfmprsujE0l Oyc+MjMgWWVhcnM8 I9XoFzq2TKVocRryUD7v xVKtWXlbEw6byWkulScs LV0gZGWwkarzHIImbV2j IKLauMPiqDqdAN1y NTYvvrlpy583StGmQOP0 EOWlbBHfJ7EhnE6qFwLg AYIpMCMiX8SagRTsNRdw K327KBanTjY6DLBt gaRpT3CdYSJalKczFlT9 z8S1Vq0VIG9MXGG2U4Fh Txr3QAAzuTgyCX1elMXd ITfmNp1wcQlmtGki UQ4uYGGhjqkaQWKfuK7y AEUboMHjoVqlPE0uEWAb irmfi598EjOfZOL1GZVz eHTnC2LwkL8vTtGg ENMhBWLiN0HyeNFrWSwn V471IExcAwC8IHOjvqMb R2GzIEEsiQshByF9a8U7 Ox6WYEmeqBX+PC90 cc58E9XtSqdqCqh9AZGz PGL3sMB5lJ4cRCEdUMxo q8T3lSM9D1GujvZnuh1z c6riATSpIUuuX47t wDZsz9X1NBHasPY9IPZt sPhbTpWuzL88Sux+PGNv xZmnb8XdOnbuc2ugl4in bPu8TyItFLLvgoQa sYjtMNL8r7LzZo15C58k IHdpZHRoPSIzMCUiIHZh sGpngs7zpF4nWs7+PGNv aWG7jSZ0eT2aYgTq DmT8CWfbS588VcIloYFo Sipsi7xfh5oevIk1JsOu VEMumrGdnEwiTMZ3p2Js Xo88C1LybPode6Zh Gpt1wo89iVFiz6T6dRW1 F0RoPTDyqnfwvFCvjZqi TL9qFVWyyftxGLGtbT2u HKEcN8w0CjQmWcS8 VBntV4WgmuY5JRGdkZJs VXRfqYZQeD4xfnnmi7pw pjzcJaBaRQKmXWe0COp4 LWFsaWduOiBsZWZ0 EzR8BXQ0cPPulT6ypHpv ydfaxE4lHta+IXx4a2wi vPIaVJ5scPO2XX84PD72 lCKyq3S3dLU7Q7Jr BUPytwnjvpluuAU4DUFl YKZrjO00Bk2oaAkqRm0i PVEmDNY8JMFslFCoD5Af dJ6lYsZjRQJiJJWn I9HbuVNzKRtdQ262VZeq DvN1YDEvjeTiM1EkKSGf qZmuReU3o3W0Ya4WGA29 CC32NJ19pJNmk6G4 rXG1G6HzSUClvljtiudh lUO6QDCeUAFskK95Yh0y uNmjTp9iEXZbOTO2XRJf tFTjC5NchI0aIwOp DWWpPYJmH3EkuGSpJTgc I320WRqwIgS3QROoggEi Q2ZxWWLgeNhhBiW9s7D5 Iq8ABe82UL78EA24 xQMzi8Z2cLF4K4AcTIFs dkeirhsqxLG7UNWlXXZs aI34Sa6viHefQq0fCLRh YPQ7PVJonDRvK8Ar mO8vOxNlDTFgYUDvT1Zg dPDfBFnuD398GKmgJwV0 HPGmrgIoO8VfYTPkeOem VwA0r2Q7Yh7XQBof bky0V9YeLoprgUD+PC90 DWClKB48uODgcTGlx3kp vMa7EcMvCINwJLO8yOuk YBxke4EeBSVlA76i [facility] (more content not included)... [facility] Chlamydia/GC Amplification L Con 08-07-2023 Chlamydia trachomatis, LENA LC Negative Invalid Interpretation Code Negative Comment on above: Performed By: #### 1 [id number] #### [facility] (DEFAULT) [address] [place] [id number] Neisseria gonorrhoeae, LENA LC Negative Invalid Interpretation Code Negative Comment on above: Result Comment: Perf ormed At: =G [facility] [address] [id number] Darrell Foley MD Ph:[phone] Performed By: #### 1 [id number] #### [facility] (DEFAULT) [address] [place] [id number] Reminder Messageson 08-07-19 24 Reminder Messages - From: JEANNETTE STOREY DO To: [facility] Clinical Pool ([facility]); Sent: 08/07/2023 07:47:05 EDT ! Show up: 08/07/2023 07:47:05 EDT Subject: Results Follow Up Actions: Call the patient with result(s) Due Date/Time: 08/08/2023 07:46:00 EDT Reminder Comments: all clear Results: Date Result Name Value Ref Range 08/03/2023 11:27 Chlamydia trachomatis, LENA LC Negative (Negative - ) 08/03/2023 11:27 Neisseria gonorrhoeae, LENA LC Negative (Negative - ) Patient notified. Normal HBsAg Screen LCon 08-06-2023 HBsAg Screen LC Negative Invalid Interpretation Code Negative Comment on above: Result Comment: Perf ormed At: [facility] [address] [id number] Ankita Murphy PhD Ph:[phone] Performed By: #### 3 [id number] ####[facility] (DEFAULT)[address] [place] [id number] HCV Antibody LCon 08-06-2023 Hep C Virus Ab LC Non-Reactive Invalid Interpretation Code Non Reactive Comment on above: Result Comment: HCV antibody alone does not differentiate between previously resolved infection and active infection. Equivocal and Reactive HCV antibody results should be followed up with an HCV RNA test to support the diagnosis of active HCV infection. Performed At: [address] [id number] Ankita Murphy PhD Ph:[phone] Performed By: #### 3 [id number] ####[facility] (DEFAULT)[address] [place] [id number] HIV 4th Gen Screen w Reflex LCon 08-06-2023 HIV Scr 4th Gen LC Non-Reactive Invalid Interpretation Code Non Reactive Comment on above: Result Comment: HIV Negative HIV-1/HIV-2 antibodies and HIV-1 p24 antigen were NOT detected. There is no laboratory evidence of HIV infection. Performed At: [employer] [facility] [id number] Ankita Murphy PhD Ph:[phone] Performed By: #### 1 [id number] #### [facility] (DEFAULT) [address] [place] [id number] Reminder Messageson 08-06-19 24 Reminder Messages - From: JEANNETTE STOREY DO To: [facility] Clinical Pool ([facility]); Sent: 08/06/2023 07:37:16 EDT ! Show up: 08/06/2023 07:37:16 EDT Subject: Results Follow Up Actions: Call the patient with result(s) Due Date/Time: 08/07/2023 07:37:00 EDT Reminder Comments: all good Results: Date Result Name Value Ref Range 08/03/2023 11:27 HBsAg Screen LC Negative (Negative - ) 08/03/2023 11:27 Hep C Virus Ab LC Non Reactive (Non Reactive - ) 08/03/2023 11:27 HIV Scr 4th Gen LC Non Reactive (Non Reactive - ) Patient notified. Normal [facility] Coding Summaryon 06-04-2023 Coding Summary HTMLBase 64 OtymqidiITo1cWq+PGhl YWQ+LG8RBFCoO46lnWCb rC0iU6TLCAeFZkcgZWUM LAyEIuThjmUbIJ8joWSm ZXJu IC8+UN8hLLCtVdihrGXp t9I0uWK6J60kur7sMFdf kQD7MWCjJvDurhnea5sh zVy0CPqhPomdWtBl PJDroU98VQJ9cH33Ie64 yBNslWHsk9qvaQl0NzHb OLLfQXV9oXuvSWgyv1Iv JVPcP45wlOPue1L0 IGNvbGxhcHNlOyBlbXB0 jQ5iCDzqmgots0qlgknz Wih9nc75nTFpk4L7qRL1 V1ZtoxY6XBKcnPIm IjfbkSSWtQ8xchupw6lr zolkJeQzZFAaYSe1AEh4 UMTesKkfCcDfZS78PFB4 ZXQfcjZrK5MpFJRz iOqzCnW0g9O3Ob5WK5MN TgqdI7GMWJOENEogmBK+ DR93qo29G8IuKiwzWhf0 FQFfKLN1lQI9kK5p PDQdKPnqz8M7rRO7C0Uo uhJufw9ky2tdHLEjYDym Z02mqVWvy7U2SIKmhUX8 ZYCysOehGzFykV25 Oyc+ZUJycTbyp2GvFhhw e3nyj1bylRt9HdxxPBJl mcBekZjwLPN4z0ZjDm3b LUCpmMN4eRH4nE5w KzRjDiH6XQimK659TbUz sLUdZmuiD38bN2YlfFM+ TOPqLvr6HKCbxEiuIU6i H3HwBBCosgczoUYn tToaVX5tBQGggdjjPPJj bS8tBLHuR9c3HyJjLyB6 BHuiL4NiZURsffhbDs01 wQ4xUhOlGaG5ZOpg L5KjykR2XDLspFRlVMqo UVW0G28ia0R0IFOtESBw QYM6uXH6aG3iyMdxdjrv bGVmdDsgdmVydGlj ODynPUeyS080QUAxlPsu PkNvZGluZyBEYXRlOiAg MDIvMDYvMjAyNDwvdGQ+ FZPrZOT6pYdzXXJm cQKoLRmsJg7geCiqeMht YB3dNKUopjpuFAIdwE3e CAZrlOJckXgmAY6iHHBv gvyqb388XbTxWXI1 LJUrlNMgC5YeoU1lYxLb TKMhIFQrR5PolSHmITxu S598OFjxUqA3OCEoszIn Z4OkDZSygHbcZvN9 i9G2Bz1Ca6WvfqsyK4Kr wADjBeSjLajkELp4F0Eg PjwvdHI+TQ72JTMkNH40 MXt0INZ5vZoySPkd RUCuW7PtsH8dXiElFTUj ZGRkOyc+PHRhYmxlIHdp ZHRoPScxMDAlJyBzdHls KV3sBu9fURXsCUGo mDgnuJBuInHfz8vyTSRh OMauHJ5mhNfyO3HyaLE9 KLWya0p1Ly11S36eO1Ws dXA+BMXigQA2sKF4 nK8hPuWtThQ5PCrvT303 NkAjeSHbRwukz2owt7hv zTg9EaR1SPMvxrPcbYvr MST1a2YiWd26Z68g IHdpZHRoPSIxNSUiIHZh sScyxr9gwP3zNl9+PGNv bTM4mPN7oH1gRyIbEsF9 XUrcB818GwXizBPz Kqocg5yhj4hyvVd4EoBw PHOjebMryQooYYL1l8Jh Lf71Q5ZadJzsk0ObVrg4 se37sJRxq4G0nYR0 P6FgEAQecnqwzFGjsVly QV8uKJXzhvkxKOQcpW0m STUbK2j1FgJnQoH7CBou Z1HkowT8ZFMgnFYl XSItpVXRaM9zgqnxg6xm prcgLlYaJWTzTQz7OWw8 DUJolYygUkXlDWS2SjP9 AIW6bBDyiY3ixFbw pvgfoI7qKrx+ROL3bIDm gEDQWP6jQgaoqSA+PHRk LXQ4bZmwLCyjQLHquW1q YXUsJ4h9VdMgSdK3 JGraJ9GvbcM4LAYevZSu DDCvgFUFkC6gmakku0bf aotmRiYsSKAgHFu8UIk1 LWFsaWduOiBsZWZ0 VkE3UKG9cBIbaD8rhGpg oichaA4kZpl+QmlydGgg IZI1GHj5W7JkCbm4DJAd aCgfND0xwRMnOPib Ap2zmNzmbPepSP8rJUHd qdidc964XoOxc9jaEOYu zYQkDSekMPF6C61ik1I3 FWGuCCSiTNQ1vVM2 lY3itDblqnmjyUUppQtw raRxtOjmOHjtHViqB535 XHTdhCfbMuNaBVs9N3Mo Vbl7GWQzoLppGD9n gGUzMRauQf9piYrmrQal HF0uKVEcaqpui787GhJc r5agXQKtcSGgEOugFHP7 S56sa7V7CPZuXHQw QQU3cMP9gJ2bfVlbmypl bGVmdDsgdmVydGljYWwt SNjiL198LITfsWteBfTo pGz8N9KoPiq9RGIn sOzeLJ1zsXTlYXkxDn2m wGmktHprSC2gOROdejuj t886YxXdu8ywEUMteIWr TMrcVHI5K97ik1K2 UPNuKVJrMDZ2vLE3fM4w bGlnbjogbGVmdDsgdmVy bZmeQXilHWepS959LAYl cDsnPlBhdGllbnQg DBuuTLs7P2GqPyhgtIK+ TY24WJIlUT96iLZvwZKv y0flaOm1LuYaNKMfGHS5 kJsiDRtdg6IaPBHv J66ykQTcs3K7FPYmpXoi lZUnQxEsjWZ0sZ4gGIaq trpci6ulduljIuyco5qk du06sX66R27qVFgs ZHRoPSIzMCUiIHZhbGln tl9seN0qFt8+PGNvbCB3 mMA2sU5dKKRuNfI1YSfj Y280OlPafOGsNtxx b6yyv1caaXp7ZxH2NIRs haQauFvbSWL2m4SiMv20 D41sOGddLRBuCKFrIREs EYWpwToups1fbK3c Ii8+MQQviYM3wNA0bD4s XiFfAbC1PSigA927AgBz gYTzTxgoC36wV5SrlOA+ PQLzJoz9VMQujQyo ZY8ieZYmSVdcBd0kQDD4 ZsXaGoBiWDhcJ0FsIFLh abibeddrzOE9ZEHoIDYk vT73Ce4stSwqEDUl eVQDhY6mrdgid3eqfujd DwNrWOMpJMk3VXi1UMVd lQagZnKtXXN6BdC2CMS2 aWPwbV5tyQvubcre wQ7hY6GqPTGvckmjUf02 cY6nRlFiSdF3CUjiRbn+ Q1ZMVIbFLM8YZHQoSW7S BPFXDSUHTLY0X0Jp Ong2TJXeiNefBV2xdUBo KJrdKk6eaStvrOolIT3n TNXodlbrVVWkrA3zOGEx sVAuyZgwMO5nGOYt xcxqx722IxYkIYK6OCCn nOFbE5VtkW7gEuDfMXFo ROPkO0TspXGqIQgiV296 VPhoFxP4PLBjojJm X3QdIGVxhAniFbS8u3J2 Af3nEs8mFK7vJNQjWK54 CW43tEQkw5C4qJH7K4Ku ZGRpbmctcmlnaHQ6 DWOiILGvkI96xBUlYSjz Ya5ow7Z5v935YYItXPHd xO09De5gyQupMLQmqOFU tO3gnsqfn5xssljp OuJhTJEbNNj1DXr7QDGk qAgzZzKdCIQ1GzK9ZDE1 jBRxuP8apUlibimopC5b Oyc+MjMgWWVhcnM8 Z3VlLbs1HHJizBrxXG5l hJGiPBkpLs1dnRnkoDjb DX0pIOQfdacmACHhlP9b ANLiyETldVnhBX3p JGJbcqcuq922NoPyFWN4 OATzoMPaO8BawF2zIkAp RTIcRDKxG1IjtQIwTMaa C848IUeuVaM1VGRt vwEsT0UnCVKtxSwrWuF1 m0Z1Ti6ZZH5SDTE4T6Ae Gnh3VNKzzRicMV5baIAs MLejLr1qdAbmtHzw QJ3jCCAygetjKYAdvR4n GQOtoFVhdByvYH6zSNIg nrorx074PxHdVRC4FKKq cIZdB0PipQ5mWiWb UEToZLInS6AceOPpMBav L250WFjrCdC4NCAmioFt F1GfLHSvmTdvYxS0w9A5 My8STThpoPT+PC90 jc13P0QeWnnaVzp5MGXo EQR7oGA8eE4cHZWmCItn b2J2bIP3I4ZhspEvtb2h h3oiOARwIBzfN54f fSBhj4W5IVXehKF8TODb qCoqHsSojA23Hbt+PGNv zOarj2PlFqidq2haz9na oNe5JfOdAMYvvhGj oHdoFMC3i8GrPv19R71v IHdpZHRoPSIzMCUiIHZh rAtwkh3ftR2jYb8+PGNv eCZ8cDV0vW9mCoZa XdR5DPyxY585CuGfeYAt Yicpe7mpf1nveLq8PxMj KLExjgEvjUqbFKI7y1Po Xe85X4KzwGdbp2Kq Hha8py67bYHot9L4jVT6 E9YeXWXodmjdpKXcoRfe QI5yUZMjdxpjOLSllQ6a JFEgD5t5DuOcUmC7 PWbfH7GeyuN5YKFmlWKs BMCaxWVArO6laxzqk2uu dsafVkLfZACyXTa9EGy2 LWFsaWduOiBsZWZ0 TjA7QSL7tRYkzL6amYnw kzdkxT7eUvx+ZTf3g1bg fEViXP8rjFT1FW04ZC96 jJSvv7E0oDA7X8Ty DAZzgdcebartvSY8EQKw FJGrxA22Eq6snUxoGj1y WRWvCRC9FMTkmTEyJ0Wp dD3tOcHkGSBmOJNb Q4DxlKBxNPgjC822HGzw MvB2ANZueiQpR8PgPSCj rAmyOiI2u2R3Hu5YUZ14 OB23EF05yKQfr0M9 dMG2R4IuBYNwxyoxzcky oVB4PAMaKQWwsC10Gx2e aHtoKg6yZRLtFFI4RNWk nWVuZ3VhmE1zLbBv QZLjLPIdE9AijKKiYVid P124SHjcEqQ9ELHyxqGw W2XlZEAsqHalKvF6y0Z9 Va7ZWl58UU09QC11 tMCrg4N1jMR7U0QvBJLv mjcbpomztOK3DEKgQGCt fD63Dy8jiAguDm3mGAEo JDC0VNLgtKTzS0Rs pL8qFzToNMXpQHPeR6We iTInLCfuZ469OEinNeM0 TRXplaVwY3LdEYLwdMjg KwH3d9E3Rq1OJNvv jzm9G2PtFhpxrEG+PC90 KQOkRT70cKRpzCQrz2jn sAk1YqTuZCYhSSK0kFqt TLndl4TxTZKmY62d [facility] (more content not included)... Normal Reminder Messageson 06-03-19 24 Reminder Messages - From: JEANNETTE STOREY DO To: [facility] Clinical Pool ([facility]); Sent: 06/03/2023 08:12:03 EST ! Show up: 06/03/2023 08:12:03 EST Subject: Results Follow Up Actions: Call the patient with result(s) Due Date/Time: 06/04/2023 08:11:00 EST Reminder Comments: looks okay Results: Date Result Name Value Ref Range 05/29/2023 16:14 Chlamydia trachomatis, LENA LC Negative (Negative - ) 05/29/2023 16:14 Neisseria gonorrhoeae, LENA LC Negative (Negative - ) Left voice mail notifying patient of normal results Normal Chlamydia/GC Amplification L Con 05-31-2023 Chlamydia trachomatis, LENA LC Negative Invalid Interpretation Code Negative Comment on above: Performed By: #### 1 [id number] #### [facility] (DEFAULT) [address] [place] [address] Neisseria gonorrhoeae, LENA LC Negative Invalid Interpretation Code Negative Comment on above: Result Comment: Perf ormed At: =G [facility] [address] [id number] Darrell Foley MD Ph:[phone] Performed By: #### 1 [id number] #### [facility] (DEFAULT) [address] [place] [address] HBsAg Screen LCon 05-30-2023 HBsAg Screen LC Negative Invalid Interpretation Code Negative Comment on above: Result Comment: Perf ormed At: CB [facility] [address] [id number] Ankita Murphy PhD Ph:[phone] Performed By: #### 3 [id number], [id number] ####[facility] (DEFAULT)[address] [place] [address] HCV Antibody LCon 05-30-2023 Hep C Virus Ab LC Non-Reactive Invalid Interpretation Code Non Reactive Comment on above: Result Comment: HCV antibody alone does not differentiate between previously resolved infection and active infection. Equivocal and Reactive HCV antibody results should be followed up with an HCV RNA test to support the diagnosis of active HCV infection. Performed At: [facility] [id number] Ankita Murphy PhD Ph:[phone] Performed By: #### 3 [id number], [id number] ####[facility] (DEFAULT)[address] [place] [address] HIV 4th Gen Screen w Reflex LCon 05-30-2023 HIV Scr 4th Gen LC Non-Reactive Invalid Interpretation Code Non Reactive Comment on above: Result Comment: HIV Negative HIV-1/HIV-2 antibodies and HIV-1 p24 antigen were NOT detected. There is no laboratory evidence of HIV infection. Performed At: [address] [id number] Ankita Murphy PhD Ph:[phone] Performed By: #### 1 [id number] ####[facility] (DEFAULT)[address] [place] [address] Reminder Messageson 05-30-19 24 Reminder Messages - From: JEANNETTE STOREY DO To: [facility] Clinical Pool ([facility] Sent: 05/30/2023 08:28:40 EST ! Show up: 05/30/2023 08:28:40 EST Subject: Results Follow Up Actions: Call the patient with result(s) Due Date/Time: 05/31/2023 08:28:00 EST Reminder Comments: hiv negative more results pending Results: Date Result Name Value Ref Range 05/29/2023 16:14 HIV Scr 4th Gen LC Non Reactive (Non Reactive - ) left vm with normal results Normal [facility] Reminder Messages - From: JEANNETTE STOREY DO To: [facility] Clinical Pool ([facility]); Sent: 05/30/2023 13:09:30 EST ! Show up: 05/30/2023 13:09:30 EST Subject: Results Follow Up Actions: Call the patient with result(s) Due Date/Time: 05/31/2023 13:09:00 EST Reminder Comments: all normal Results: Date Result Name Value Ref Range 05/29/2023 16:14 HBsAg Screen LC Negative (Negative - ) 05/29/2023 16:14 Hep C Virus Ab LC Non Reactive (Non Reactive - ) left vm with normal results Normal Miscellaneouson 11-15-2022 Miscellaneous [id number]#[id number] [facility] Outside Recordson 11-15-2022 Outside Records [id number]#[id number] [facility] Q - THINPREP(R) TIS AND HPV MRNA E6/E7 RFL HPV 16/18/45on 05-04-2021 CLINICAL INFORMATION: None given Normal [facility] Sap Bobj Developer Comment on above: Order Comment: [facility] performed at: [employer], [address] [place] [address], [phone], Autoclave Operator: Reese Hutton MD [facility] Date/Time: [facility] Results Received Date/Time: [facility] Reported Date/Time: Performed By: #### 9 1414 #### [facility] Default [address] [place] [address] COMMENT SEE NOTE Normal [facility] [employer] Developer Comment on above: Order Comment: [facility] performed at: [employer], [address] [place] [address], [phone], Autoclave Operator: Reese Hutton MD [facility] Date/Time: [facility] Results Received Date/Time: [facility] Reported Date/Time: Result Comment: EXPL ANATORY NOTE: The Pap is a screening test for cervical cancer. It is not a diagnostic test and is subject to false negative and false positive results. It is most reliable when a satisfactory sample, regularly obtained, is submitted with relevant clinical findings and history, and when the Pap result is evaluated along with historic and current clinical information. Performed By: #### 9 1414 #### [facility] Default [address] [place] [address] COMMENT: This Pap test has been evaluated with computer assisted technology. Normal [facility] Sap Bobj Developer Comment on above: Order Comment: [facility] performed at: [facility], [address] [place] [address], [address] [place] [address], [address] [place] [address], Autoclave Operator: Reese Hutton MD [facility] Date/Time: [id number] [facility] Results Received Date/Time: [facility] Reported Date/Time: Performed By: #### 9 1414 #### [facility] Default [address] [place] [address] INSPECTOR AIDE: SEE NOTE Normal [facility] Comment on above: Order Comment: [facility] performed at: [facility], [address] [place] [address], [address] [place] [address], Autoclave Operator: Reese Hutton MD [facility] Date/Time: [id number] [facility] Results Received Date/Time: [facility] Reported Date/Time: Result Comment: BH, CT(ASCP) CT screening location: [place] [address]. Performed By: #### 9 1414 #### [facility] Default [address] [place] [address] HPV mRNA E6/E7 Not detected Normal Not Detected Kat [facility] Sap [employer]j Developer Comment on above: Order Comment: [facility] performed at: [facility], [address] [place] [address], [address] [place] [address], [phone], Autoclave Operator: Reese Hutton MD [facility] Date/Time: [facility] Results Received Date/Time: [facility] Reported Date/Time: Result Comment: Meth odology: [employer] Developer-Mediated Amplification This assay detects E6/E7 viral messenger RNA (mRNA) from 14 high-risk HPV types (16,18,31,33,35,39,45,51,52,56,58,59,66,68). The analytical performance characteristics of this assay have been determined by [employer]. The modifications have not been cleared or approved by the FDA. This assay has been validated pursuant to the CLIA regulations and is used for clinical purposes. For additional information, please refer to http://education.[employer]/faq/EGV848v6 (This link if provided for information/ educational purposes only.) Performed By: #### 9 1414 #### [facility] [address] [place] [address] INTERPRETATION/RESUL T: Negative Normal [facility] Specialist Comment on above: Order Comment: [facility] performed at: [employer], [address] [place] [address], Autoclave Operator: Reese Hutton MD [facility] Date/Time: [facility] Results Received Date/Time: [facility] Reported Date/Time: Performed By: #### 9 1414 #### [facility] Default [address] [place] [address] LMP: NONE GIVEN Normal [facility] Comment on above: Order Comment: [facility] performed at: [employer], [phone], Autoclave Operator: Reese Hutton MD [facility] Date/Time: [facility] Results Received Date/Time: [facility] Reported Date/Time: Performed By: #### 9 1414 #### [facility] Default [address] [place] [address] PREV. BX: NONE GIVEN Normal [facility] Specialist Comment on above: Order Comment: [facility] performed at: [place], [facility], [address] [place] [address], [address] [place] [address], [address] [place] [address], Autoclave Operator: Reese Hutton MD [facility] Date/Time: [facility] Results Received Date/Time: [facility] Reported Date/Time: Performed By: #### 9 1414 #### [facility] Default [address] [place] [address] PREV. PAP: NONE GIVEN Normal [facility] Specialist Comment on above: Order Comment: [facility] performed at: [employer], [facility], [address] [place] [address], [address] [place] [address], [address] [place] [address], Autoclave Operator: Reese Hutton MD [facility] Date/Time: [facility] Results Received Date/Time: [facility] Reported Date/Time: Performed By: #### 9 1414 #### [facility] Default [address] [place] [id number] SOURCE: None given Normal [facility] Sap Bobj Developer Comment on above: Order Comment: [facility] performed at: [facility], [employer], [address] [place] [address], [address] [place] [address], [address] [place] [address], Autoclave Operator: Reese Hutton MD [facility] Date/Time: [facility] Results Received Date/Time: [facility] Reported Date/Time: Performed By: #### 9 1414 #### [facility] Default [address] [place] [id number] STATEMENT OF ADEQUACY: SEE NOTE Normal [facility] [employer] Developer Comment on above: Order Comment: [facility] performed at: [facility], [facility], [address] [place] [address], [address] [place] [address], [address] [place] [address], Autoclave Operator: Reese Hutton MD [facility] Date/Time: [facility] Results Received Date/Time: [facility] Reported Date/Time: Result Comment: Sati sfactory for evaluation. Endocervical/transformation zone component present. Performed By: #### 9 1414 #### [facility] Laboratory Default [address] [place] [address] Vital Signs Date Time Vital Sign Value Performing Clinician Eduardo lity 06-06-2023 15:13-0500 Body mass index (BMI) [Ratio] 34.22 kg/m2 Holly Hui-Nossek EMBEDDED ENGINEER-HEAD SILVERMAN Work Phone: [facility] 06-06-2023 15:13-0500 Body weight 96.16 kg Holly Hui-Nossek EMBEDDED ENGINEER-HEAD SILVERMAN Work Phone: [facility] 06-06-2023 15:13-0500 Diastolic blood pressure 80 mm[Hg] Holly Hui-Nossek EMBEDDED ENGINEER-HEAD SILVERMAN Work Phone: [facility] 06-06-2023 15:13-0500 Heart rate 82 /min Holly Hui-Nossek EMBEDDED ENGINEER-HEAD SILVERMAN Work Phone: [facility] 06-06-2023 15:13-0500 Systolic blood pressure 100 mm[Hg] Holly Hui-Nossek EMBEDDED ENGINEER-HEAD SILVERMAN Work Phone: [facility] Healthcare Encounters Encounter Date Encounter Type Care Provider Facility Start: 12-24-2023 End: 12-24-2023 ambulatory OANH BRETT Not Available Start: 12-19-2023 End: 12-19-2023 ambulatory HOLLY M HUI-NOSSEK Not Available Start: 12-10-2023 End: 12-10-2023 ambulatory OANH BRETT Not Available Start: 11-09-2023 End: 11-09-2023 Emergency department patient visit JEANNETTE STOREY [facility] Start: 10-30-2023 End: 10-30-2023 ambulatory ARACELY KILGORE Not Available Start: 10-03-2023 End: 10-03-2023 ambulatory HOLLY M HUI-NOSSEK Not Available Start: 09-19-2023 End: 09-19-2023 ambulatory Gary Dc Facility: Start: 09-19-2023 End: 09-19-2023 ambulatory Gary Dc [facility] Start: 09-04-2023 End: 09-04-2023 ambulatory JEANNETTE P MAMOU Facility: [facility] Start: 08-15-2023 End: 08-15-2023 ambulatory HOLLY Jass HUI-NOSSEK Not Available Start: 08-03-2023 End: 08-03-2023 ambulatory JEANNETTE P MAMOU Facility: Start: 08-01-2023 End: 08-01-2023 ambulatory ARACELY FLORO Not Available Start: 07-18-2023 End: 07-18-2023 ambulatory HOLLY M HUI-NOSSEK Not Available Start: 06-24-2023 End: 06-24-2023 ambulatory HOLLY M HUI-NOSSEK Not Available Start: 06-06-2023 End: 06-06-2023 Office outpatient visit 40 minutes Holly M Hui-Nossek EMBEDDED ENGINEER-HEAD SILVERMAN Work Phone: [facility] Comment on above: Bipolar I disorder, moderate, current or most recent episode depressed, with psychotic features, with mixed features (CMS/HCC) Start: 06-06-2023 End: 06-06-2023 ambulatory HOLLY M HUI-NOSSEK Not Available Start: 06-06-2023 Bamboo flowsheet Holly M Fio r-Nossek EMBEDDED ENGINEER-HEAD SILVERMAN Work Phone: [facility] Start: 06-06-2023 Bamboo flowsheet Holly M Fio r-Nossek EMBEDDED ENGINEER-HEAD SILVERMAN Work Phone: [facility] Start: 05-29-2023 End: 05-29-2023 ambulatory JEANNETTE P MAMOU Facility: Start: 05-29-2023 End: 05-29-2023 ambulatory JEANNETTE P MAMOU Facility:[facility] Start: 05-15-2023 End: 05-15-2023 ambulatory HOLLY M HUI-NOSSEK Not Available Start: 05-09-2023 End: 05-09-2023 ambulatory ARACELY L FLORO Not Available Start: 04-17-2023 End: 04-17-2023 ambulatory HOLLY Regan HUI-NOSSEK Not Available Start: 03-20-2023 End: 03-20-2023 ambulatory HOLLY Regan HUI-NOSSEK Not Available Start: 01-31-2023 End: 01-31-2023 ambulatory Alvino Teresa MD Facility:[facility] Start: 11-12-2022 End: 11-12-2022 ambulatory Alvino Teresa MD Facility:[facility] Plan of Treatment Date Care Activity Detail Author Start: 05-13-2024 End: 05-13-2024 Patient encounter procedure 05/13/2024 9:00 AM EST Office Visit [facility] [address] [place] [id number] Lyn Aracely Terry, CN [address] [facility], [place] [id number] [facility] Start: 06-24-2023 End: 06-24-2023 Patient encounter procedure 06/24/2023 3:00 PM EST Office Visit [facility] [address] [facility] [address] [place] [address] Hui-Holly Davis M, EMBEDDED ENGINEER-HEAD SILVERMAN [address] [facility] [address] [place] [address] [facility] Start: 06-06-2023 End: 06-06-2023 Patient encounter procedure 06/06/2023 3:30 PM EST Office Visit [facility] [address] [place] [address] [place] [address] Hui-Holly Davis M, EMBEDDED ENGINEER-HEAD SILVERMAN [address] [facility] [address] [place] [address] Arrived [facility] Comment on above: Arrived Payers Date Payer Category Payer Private Health Insurance [id number] 2020 Private Health Insurance [facility] [id number] 2020-Present [address] [place] [address] [id number] 2020 Private Health Insurance [id number] 2018 Unknown [id number] 2000 Unknown [id number] 2.16.840.1.193792.3.579.2 .718 2000 Unknown [id number] 2.16.840.1.258914.3.579.2 .718 2000 Unknown [id number] 2.16.840.1.785776.3.579.2 .718 2000 Unknown [id number] 2.16.840.1.306790.3.579.2 .718 2000 Unknown [id number] 2.16.840.1.533598.3.579.2 .718 2000 Unknown [id number] 2.16.840.1.712706.3.579.2 .718 2000 Unknown [id number] 2.16.840.1.573924.3.579.2 .718 2000 Unknown [id number] 2.16.840.1.882845.3.579.2 .718 2000 Unknown [id number] 2.16.840.1.329717.3.579.2 .1286 2000 Unknown [id number] 2.16.840.1.296933.3.579.2 .1259 2000 Unknown [id number] 2.16.840.1.779079.3.579.2 .9 2000 Unknown [id number] 2.16.840.1.847563.3.579.2 .1259 2000 Unknown [id number] 2.16.840.1.409751.3.579.2 .1259 2000 Unknown [id number] 2.16.840.1.152266.3.579.2 .9 2000 Unknown [id number] 2.16.840.1.119173.3.579.2 .9 2000 Unknown [id number] 2.16.840.1.963601.3.579.2 .9 2000 Unknown [id number] 2.16.840.1.409021.3.579.2 .9 2000 Unknown [id number] 2.16.840.1.731203.3.579.2 .9 2000 Unknown [id number] 2.16.840.1.507358.3.579.2 .9 2000 Unknown [id number] 2.16.840.1.857265.3.579.2 .9 2000 Unknown [id number] 2.16.840.1.833230.3.579.2 .9 2000 Unknown [id number] 2.16.840.1.986910.3.579.2 .9 2000 Unknown [id number] 2.16.840.1.264264.3.579.2 .9 Social History Date Type Detail Facility Start: 02-18-2023 Tobacco smoking stat [facility] Never smoked tobacco [facility] Start: 02-18-2023 Tobacco use and exposure Smokeless t obacco non-user [facility] Start: 05-15-2023 End: 06-06-2023 Alcohol intake Ex-drinker (finding) [facility] Start: 05-15-2023 End: 06-06-2023 History of Social function [facility] Start: 05-15-2023 End: 06-06-2023 Tobacco use panel [facility] Start: 02-18-2023 Alcohol Comment 1 can pop QOD [facility] Start: 2000 Sex Assigned At Not on file [facility] Clinical Note 09-20-2023 Note Date & Type Note Facility 09-20-2023 Note [id number] Clinical Note 09-19-2023 Note Date & Type Note Facility 09-19-2023 Note [facility] SUR[facility] Clinical Discharge Summary PERSON INFORMATION Name WALTER RUSSO Age 23 Years 2000 Sex FEMALE Language Divehi PCP JEANNETTE STOREY DO Marital Status Single Med Service Ambulatory Surgery Acct# Arrival 09/19/2023 08:23:11 Visit Reason Surgery - Colonoscopy Acuity LOS 014 20:14 Address: [address] [place] [address] Comment: PROVIDER INFORMATION VITALS INFORMATION Vital Sign Triage Latest Temp Oral Temp Temporal Temp Intravascular Temp Axillary Temp Rectal 02 Sat 98 % 95 % Respiratory Rate Peripheral Pulse Rate Apical Heart Rate Blood Pressure / 78 mmHg / 56 mmHg Comment: MEDICAL INFORMATION Allergy Info: Pollen Prescriptions Given: divalproex sodium (Depakote 500 mg oral delayed release tablet) 1 tab(s) Oral (given by mouth) every day. LORazepam (LORazepam 0.5 mg oral tablet) 1 tab(s) Oral (given by mouth) 3 times per day as needed as needed for anxiety for 30 Days. Refills: 2., per BRETT, last filled 04/23/2022 #90 appt 08/22/21 lumateperone (Caplyta 42 mg oral capsule) 1 cap(s) Oral (given by mouth) every day. medroxyPROGESTERone (Depo-Provera) 150 Milligram Intramuscular every 3 months. sertraline (sertraline 150 mg oral capsule) 1 tb(s) Oral (given by mouth) every day. Medication List: Medications to Continue That Have Not Changed Other Medications divalproex sodium (Depakote 500 mg oral delayed release tablet) 1 tab(s) Oral (given by mouth) every day. LORazepam (LORazepam 0.5 mg oral tablet) 1 tab(s) Oral (given by mouth) 3 times per day as needed as needed for anxiety for 30 Days. Refills: 2. lumateperone (Caplyta 42 mg oral capsule) 1 cap(s) Oral (given by mouth) every day. medroxyPROGESTERone (Depo-Provera) 150 Milligram Intramuscular every 3 months. sertraline (sertraline 150 mg oral capsule) 1 tb(s) Oral (given by mouth) every day. Medications to Continue That Have Not Changed Other Medications divalproex sodium (Depakote 500 mg oral delayed release tablet) 1 tab(s) Oral (given by mouth) every day. LORazepam (LORazepam 0.5 mg oral tablet) 1 tab(s) Oral (given by mouth) 3 times per day as needed as needed for anxiety for 30 Days. Refills: 2. lumateperone (Caplyta 42 mg oral capsule) 1 cap(s) Oral (given by mouth) every day. medroxyPROGESTERone (Depo-Provera) 150 Milligram Intramuscular every 3 months. sertraline (sertraline 150 mg oral capsule) 1 tb(s) Oral (given by mouth) every day. Medications to Continue That Have Not Changed Other Medications divalproex sodium (Depakote 500 mg oral delayed release tablet) 1 tab(s) Oral (given by mouth) every day. LORazepam (LORazepam 0.5 mg oral tablet) 1 tab(s) Oral (given by mouth) 3 times per day as needed as needed for anxiety for 30 Days. Refills: 2. lumateperone (Caplyta 42 mg oral capsule) 1 cap(s) Oral (given by mouth) every day. medroxyPROGESTERone (Depo-Provera) 150 Milligram Intramuscular every 3 months. sertraline (sertraline 150 mg oral capsule) 1 tb(s) Oral (given by mouth) every day. Comment: Lab and Radiology Results Laboratory or Other Results This Visit (last charted value for your 09/19/2023 visit) Chemistry 09/19/2023 8:35 AM U Preg: Negative DIET & ACTIVITY Patient Activity Level: Patient Diet: Patient Activity Restrictions: DISCHARGE INFORMATION Discharge Disposition: Discharge Location: DEPART REASON INCOMPLETE INFORMATION PATIENT EDUCATION INFORMATION Instructions: Colonoscopy, Adult, Care After Follow up: With: Address: When: JEANNETTE STOREY With: Address: When: Gary Dc [address] [place] [address], [place] [address] Business (1) , only if needed DIAGNOSIS 1:Abdominal pain; 2:Rectal bleeding Comment: PHYS DOC NOTES History and physical note 09-18-2023 Note Date & Type Note Facility 09-18-2023 Note [id number] H&P Update: This H&P has been reviewed, the patient examined, and the findings verified. [Electronically Signed on: 09/19/2023 09:20 EDT] Gary Dc MD [Verified on: 09/19/2023 09:20 EDT] Gary Dc MD [Transcribed on: 09/18/2023 12:20 EDT] [facility] History of Present illness Narrative 06-06-2023 Sparkle Mathew LPN - 06/06/2023 3:30 PM Luz Maria Barros, [facility] - 06/06/2023 3:30 PM Luz Maria Barros, [facility] - 06/06/2023 3:30 PM EST Note Date & Type Note Facility 06-06-2023 History of Presen t illness Narrative 05/15/22 [facility] Patient is here for medication follow up. Had episode of paranoia. The last week and a half. Wasn't sleeping well. Thought something bad was going to happen. Denied hearing voices. Thought she was right and she new something was wrong with her. Having delusional thoughts. Also felt tense, mood swings worsened, She went to doctor and was reassured. Feared someone going to take dogs. She gets to point where it gets so severe she almost went to hospital. Denies feeling sad or depressed. Feeling worsening. anxiety. Has not missed any work. Enjoys going to work. Mood is reported as less depressed and rates depression a 3 (10worst). Anxiety is less and down to a 8-9 (10worst).Believes if touch things wrong, ill get a disease. Tapered off clomipramine. Agrees and is willing to taper off lorazepam. Sleeping 9-10 hours. Last week and a half was only getting 6 hours. Was up googling symptoms and worried about dog if he got lost. No longer having nightmares. Medication compliant. No reported side effects. Having diarrhea and not sure if this is med or IBS. Has had in past and does not want to stop taking med. Denies abuse of substances. Medical problems since last visit Works at a [employer] in [place]. Psychosocial stressors include mood, worries about germs and toilet seats. financial difficulties. Enjoys caring for her 4 puppies. Sees counselor. Review of Systems/ Mental Status exam APPEARANCE: Well groomed, neatly dressed Abnormal body movements: none ATTITUDE: cooperative Attention: good focus and concentration BEHAVIOR: Appropriate with good eye contact. MOTOR ACTIVITY: No psychomotor agitation SPEECH: clear, regular rate, rhythm, volume/talkative MOOD: depression and anxious / irritability AFFECT: Full range THOUGHT PROCESS: organized, clear THOUGHT CONTENT: Denies suicidal or homicidal ideation. No preoccupations THOUGHT PERCEPTION: Denies a/v hallucinations, no evidence of delusions. COGNITION: Alert and oriented x 3 MEMORY:No deficit in recent and remote memory INSIGHT: Good.Patient recognizes symptoms of illness and need for recommended treatments JUDGEMENT: Able to make decisions about ordinary activities of daily living. Impression This is a 22 yr old female who has been treated for Bipolar Disorder, Anxiety Disorder, ADD, OCD. Patient is routinely taking ativan and our goal will be to treat anxiety with an SSRI so that patient wont need benzodiazepine regularly, but prn only. Imipramine being used for OCD but patient has not found effective and potential for several interactions using TCA. Discontinued without effect. Started on zoloft to target anxiety. Will adjust to target sx Patient noted improved mood with adding of Caplyta. Diagnosis: Bipolar Disorder moderate Mixed with psychotic features R/O schizoaffective General ANXIETY DISORDER R/O ADD, OCD Plan Medications Discontinue concerta Lorazepam prn Off clomipramine for Zoloft 100mg po every day -will lower lorazepam once on zoloft 6 weeks. CONTINUE Lamictal as previous Caplyta 42 mg once Continue Psychotherapy-Lore 8. Call if delusional sx. F/U 3 weeks Minutes in Direct clinical care and documentation 30min Patient reports being impulsive since Saturday, spending money on Credit Card. Wanting to get tattoos. Reports went out to the bars with friends and drinking too much beer and shots of Fire Ball and blacked out at the bar, does not remember being at the bar or getting home. The next day was paranoid because she did not remember anything and got worried so she went to her PCP and got tested for STDS. Patient took last dose of Lamictal yesterday. Spoke to ficlary and they are will to pay for the Caplyta.. 06/06/23 HPI Patient is here for medication follow up. A week after patient was here. Had episode of paranoia. Had episode of impulsive and risk taking spending money, shopping on bar tab, buying stuff on [employer], This lasted about a week. Denied hearing voices. When went out to a bar, drank heavily, blacked out- and was found Worried about having sexual relations and feared she had a STD. She went to doctor and was reassured. She gets to point where it gets so severe she almost went to hospital. Denies feeling sad or depressed. Feeling worsening. anxiety. Has to take Lorazepam more often. Has not missed any work. Enjoys going to work. Anxiety is less and down to a 8-9 (10worst).Believes if touch things wrong, ill get a disease. Tapered off clomipramine. Sleeping 9-10 hours. Last week and a half was only getting 6 hours. Was up googling symptoms and worried about dog if he got lost. No longer having nightmares. Medication compliant. No reported side effects. Having diarrhea and not sure if this is med or IBS. Has had in past and does not want to stop taking med. Denies abuse of substances. Medical problems since last visit Works at a [employer] in [place]. Psychosocial stressors include mood, worries about germs and toilet seats. financial difficulties. Enjoys caring for her 4 puppies. Sees counselor. Review of Systems/ Mental Status exam APPEARANCE: Well groomed, neatly dressed Abnormal body movements: none ATTITUDE: cooperative Attention: good focus and concentration BEHAVIOR: Appropriate with good eye contact. MOTOR ACTIVITY: No psychomotor agitation SPEECH: clear, regular rate, rhythm, volume/talkative MOOD: low depression and anxious / irritability AFFECT: Full range THOUGHT PROCESS: organized, clear THOUGHT CONTENT: Denies suicidal or homicidal ideation. No preoccupations THOUGHT PERCEPTION: Denies a/v hallucinations, no evidence of delusions. COGNITION: Alert and oriented x 3 MEMORY:No deficit in recent and remote memory INSIGHT: fair to poor at times Patient recognizes symptoms of illness and need for recommended treatments JUDGEMENT: fair to poor at times Able to make decisions about ordinary activities of daily living. Impression This is a 22 yr old female who has been treated for Bipolar Disorder, Anxiety Disorder, ADD, OCD. Patient is routinely taking ativan and our goal will be to treat anxiety with an SSRI so that patient wont need benzodiazepine regularly, but prn only. Imipramine being used for OCD but patient has not found effective and potential for several interactions using TCA. Discontinued without effect. Started on zoloft to target anxiety. Will adjust to target sx Patient noted improved mood with adding of Caplyta.Will discontinue lamictal and use Depakote to target manic sx. Diagnosis: Bipolar Disorder moderate Mixed with psychotic features R/O schizoaffective General ANXIETY DISORDER R/O ADD, OCD Plan Medications Lorazepam prn Zoloft 100mg po every day -will lower lorazepam once on zoloft 6 weeks. Stop Lamictal Caplyta 42 mg once Continue Psychotherapy-Rhea 6. Depakote ER 500mg daily -to target manic sx 7. NEXT VISIT CHECK DEPAKOTE LEVEL F/U 2 weeks Minutes in Direct clinical care and documentation 40min documented in this encounter [facility] Evaluation note Note Date & Type Note Facility Evaluation note Diagnosis Bipolar I disorder, moderate, current or most recent episode depressed, with psychotic features, with mixed features (CMS/HCC) documented in this encounter [facility] Summary Purpose Family History No Family History Records FoundNo Family History Records FoundNo Family History Records FoundNo Family History Records Found Advance Directives No Advanced Directives Records FoundNo Advanced Directives Records FoundNo Advanced Directives Records FoundNo Advanced Directives Records Found Additional Source Comments INFORMATION SOURCE (unrecogn ized section and content) DATE CREATED AUTHOR 05/08/2021 [facility] Special[facility] DATE CREATED AUTHOR AUTHOR'S ORGANIZ ATION 10/19/2023 [facility] DATE CREATED AUTHOR AUTHOR'S ORGANIZ ATION 11/14/2023 [facility] DATE CREATED AUTHOR AUTHOR'S ORGANIZ ATION 12/26/2023 [facility] Specialists EPIC Reason for Visit (unrecogniz ed section and content) Reason Comments Med Management Follow-up FOR RECORDS PERTAINING TO PATIENTS WHO ARE OR HAVE BEEN ENROLLED IN A CHEMICAL DEPENDENCY/SUBSTANCEABUSE PROGRAM, SOME INFORMATION MAY BE OMITTED. This clinical summary was aggregated from multiple sources. Caution should be exercised in using it in the provision of clinical care. This summary normalizes information from multiple sources, and as a consequence, information in this document may materially change the coding, format and clinical context of patient data. In addition, data may be omitted in some cases. CLINICAL DECISIONS SHOULD BE BASED ON THE PRIMARY CLINICAL RECORDS. [facility] [facility]. provides no warranty or guarantee of the accuracy or completeness of information in this document.
[2024-01-17] MEDS: LACTATED RINGER'S SOLUTION 1,000 ML 50 ML IV ×2 (08:45→10:47)
[2024-01-17 08:50] LABS: HCG Quantitative <1 mIU/mL
--- NOTE | 2024-01-17 11:12 | PM.ONB ---
Brief Operative Note Date of procedure: 01/17/24 Pre-op diagnosis general: desires permanent sterilization Post-op diagnosis: same as pre-op Procedure: NAME OF PROCEDURE: [laparoscopic tubal ligation with filschie clips ] PROCEDURE: The patient was taken back to the Operating Room where she was given general anesthesia without difficulty. She was then prepped and draped in the normal sterile fashion after being placed in a dorsal lithotomy position.? A wet sponge stick was placed into the patient?s vagina. Attention was then turned to the patient's abdomen, where a scalpel was used to make a small infraumbilical incision. The S retractors were then used to dissect the underlying layers until the fascia could be seen. The fascia was then grasped with Rosey clamps and tented up. A knife was then used to make a small incision to the fascia. The muscle was identified, at that time two sutures of #0 Vicryl on a GI needle was then used and placed through the fascia. The peritoneum was then identified and entered bluntly. The 10-4 Agnieszka was then placed into the patient?s abdomen. This was confirmed with direct visualization of the bowel, using the laparoscope. The patient's abdomen was then insufflated using approximately 4 liters of CO2 gas.? Survey of the patient's abdomen demonstrated ovaries were normal in appearance as well as both tubes. A second left lateral port, which was 7-8 in size, was then placed laterally after incision was made in the skin under direct visualization. The patient?s tube on the patient?s right side was identified, the Filshie clip was then placed in the ampullar region after the fimbriated edge of the tube was seen. This was performed on the contralateral side as well. The left lateral port was then moved under direct visualization with excellent hemostasis. All instruments were removed from the patient's abdomen. The fascia was closed using the #0 Vicryl on GI needle. The skin was closed using 4-0 Vicryl subcuticularly. All instruments were removed from the patient's vagina as well. The patient was taken out of the dorsal lithotomy position and placed in the supine position and taken to recovery in stable condition. Sponge, lap and needle counts were correct x2.? Anesthesia: FRANKY Surgeon: Peter Alba Platform Stapler: Beatriz Ashraf Estimated blood loss (mL): 5 Pathology: none sent Condition: stable Disposition: PACU Urinary Catheter Management Urinary Catheter Management Urethral: Cath placed during this visit: no
[2024-01-17] MEDS: HYDROMORPHONE HCL 0.5 MG/0.5 ML SYRINGE IV ×2 (11:48→11:56)
[2024-01-17] MEDS: HYDROCODONE/ACET 5-325 MG TABLET 1 TAB PO (11:52)
== END 2024-01-17 13:05 | disposition home or self-care (01) ==
PROVIDERS: PCP Family Medicine; Visit Provider Obstetrics & Gynecology
PROC: (CPT 851; principal; 2024-01-17 09:25)
DX: Z30.2 Encounter for sterilization (principal)
CPT/HCPCS: 58671; 36415; 84702; 85025; J1100; J1170; J1885; J2250; J2405; J2704; J3010